=== PATIENT | male | born 1975 | race Two or more races ===

== ENCOUNTER 2017-06-27 19:34 | Emergency (ER) | payer SELFPAY ==
--- NOTE | 2017-06-27 20:17 | RADIOLOGY REPORT (SQ) ---
EXAM DESCRIPTION: FINGER LEFT COMPLETED DATE/TIME: 06/27/2017 8:06 pm REASON FOR STUDY: crush injury, hit with hammer COMPARISON: None. NUMBER OF VIEWS: Three views. TECHNIQUE: AP, lateral, and oblique images acquired of the left thumb. LIMITATIONS: None. FINDINGS: MINERALIZATION: Normal. BONES: No acute fracture or dislocation. No worrisome bone lesions. SOFT TISSUES: Distal soft tissue swelling. No foreign body. OTHER: No other significant finding. IMPRESSION: No fracture. COMMENT: SITE OF TRAUMA/COMPLAINT MARKED/STAMP COMPLETED: Yes TECHNICAL DOCUMENTATION: JOB ID: [id number] [employer]- All Rights Reserved
[2017-06-27] MEDS ORDERED: HYDROCODONE/ACETAMINOPHEN 5-325 MG 6 TAB/DSPK PO PRN (20:22)
[2017-06-27] MEDS ORDERED: CEPHALEXIN 500 MG CAPSULE PO ONE (20:22)
--- NOTE | 2017-06-27 20:30 | ER Document Report ---
HPI - HPI Patient complains to provider of: thumb injury Onset: This afternoon Onset/Duration: Sudden Quality of pain: Sharp Pain Level: 4 Context: Patient accidentally struck his left thumb with a hammer today. Patient is right-hand dominant. Patient states his tetanus immunization is currently up-to -date Associated Symptoms: Other - Left thumb injury Exacerbated by: Movement Relieved by: Denies Similar symptoms previously: No Recently seen / treated by doctor: No - ROS ROS below otherwise negative: Yes Systems Reviewed and Negative: Yes All other systems reviewed and negative - CONSTITUTIONAL Constitutional: DENIES: Fever - NEURO Neurology: DENIES: Weakness - MUSCULOSKELETAL Musculoskeletal: REPORTS: Extremity pain, Swelling - DERM Skin Color: Normal Skin Problems: Laceration Past Medical History - General Information source: Patient - Social History Smoking Status: Never Smoker Frequency of alcohol use: None Drug Abuse: None Occupation: Construction Family History: Reviewed & Not Pertinent Patient has suicidal ideation: No Patient has homicidal ideation: No - Medical History Medical History: Negative Renal/ Medical History: Denies: Hx Peritoneal Dialysis Past Surgical History: Reports: Hx Herniorrhaphy - Immunizations Hx Diphtheria, Pertussis, Tetanus Vaccination: Yes Vertical Provider Document - CONSTITUTIONAL Agree With Documented VS: Yes Exam Limitations: No Limitations General Appearance: WD/WN, No Apparent Distress - INFECTION CONTROL TRAVEL OUTSIDE OF THE [place] IN LAST 30 DAYS: No - HEENT HEENT: Atraumatic, Normocephalic - NECK Neck: Normal Inspection - RESPIRATORY Respiratory: Breath Sounds Normal, No Respiratory Distress O2 Sat by Pulse Oximetry: 100 - CARDIOVASCULAR Cardiovascular: Regular Rate, Regular Rhythm - MUSCULOSKELETAL/EXTREMETIES Musculoskeletal/Extremeties: MAEW, Tender - Left thumb, Edema, Eccymosis - NEURO Level of Consciousness: Awake, Alert, Appropriate Motor/Sensory: No Motor Deficit - DERM Integumentary: Warm, Dry Notes: Patient with a skin tear to skin just adjacent to nail plate, patient with subungual hematoma to left thumbnail. Left thumb tender, swollen, no deformity Course - Re-evaluation Re-evalutation: 06/27/17 20:23 Trephination performed to the left thumbnail, small amount of blood released - Vital Signs Vital signs: Temp Pulse Resp BP Pulse Ox 98.7 F 73 17 130/60 H 100 06/27/17 19:37 06/27/17 19:37 06/27/17 19:37 06/27/17 19:37 06/27/17 19:37 - Diagnostic Test Radiology reviewed: Image reviewed, Reports reviewed Procedures - Laceration/Wound Repair Left Thumb Wound length (cm): 1 Wound's Depth, Shape: Other - Skin tear Wound explored: Clean Wound Repaired With: Steri-strips Post-procedure wound care: Sterile dressing applied Post-procedure NV exam normal: Yes Complications: No Discharge - Discharge Clinical Impression: Crush injury, Skin tear Subungual hematoma of digit of hand Qualifiers: Encounter type: initial encounter Qualified Code(s): S60.10XA - Contusion of unspecified finger with damage to nail, initial encounter Condition: Stable Disposition: HOME, SELF-CARE Instructions: Cephalexin ([facility]), Crush Injury ([facility]), Oral Narcotic Medication ( [facility]), Care of Steri-Strip Closure ([facility]), Subungual Hematoma ([facility]) Additional Instructions: Return immediately for any new or worsening symptoms Followup with your primary care provider, call tomorrow to make a followup appointment Prescriptions: Cephalexin Monohydrate [Keflex 500 mg Capsule] 500 mg PO Q6H 5 Days capsule Hydrocodone/Acetaminophen [[place] 5-325 Tablet] 1 each PO Q4 PRN #10 tablet PRN Reason: Forms: Return to Work Referrals: LENA SWANSON DO [ACTIVE STAFF] - Follow up as needed
[2017-06-27 20:56] VITALS: BP 117/70
== END 2017-06-27 20:54 | disposition home or self-care (01) ==
LOC: ER 19:34
DX: S60.10XA Contusion of unspecified finger with damage to nail, initial encounter (principal); X58.XXXA Exposure to other specified factors, initial encounter
CPT/HCPCS: 99283

== ENCOUNTER 2018-04-11 19:32 | Emergency (ER) | payer SELFPAY ==
[2018-04-11] MEDS ORDERED: ASPIRIN 81 MG TABLET, CHEWABLE PO ONE (19:55)
--- NOTE | 2018-04-11 19:57 | ER Document Report ---
ED Medical Screen (RME) - General Chief Complaint: Chest Pain Stated Complaint: CHEST PAIN Time Seen by Provider: 04/11/18 19:51 Notes: RAPID MEDICAL EVALUATION DISCLOSURE I have seen this patient as part of a Rapid Medical Evaluation and, if applicable, placed any initially appropriate orders. The patient will be seen and fully evaluated, including a full history and physical exam, by a provider ( in Main ED or Fast Track) when a room becomes available. 43-year-old male here with complaints of midsternal chest pain radiating up to his neck ongoing for the past 4 days. The pain is worse with breathing but not worse with exertion. He has not tried taking anything for the symptoms. He no prior history of coronary disease but has a family history of [place] at age 40. He denies hypertension diabetes hyperlipidemia tobacco/cocaine abuse. He denies history of PE DVT or family history of same. Denies prolonged immobilization cancer or estrogen use. EXAM CTAB RRR TRAVEL OUTSIDE OF THE [place] IN LAST 30 DAYS: No - Related Data Allergies/Adverse Reactions: No Known Allergies Allergy (Verified 06/27/17 19:37) Past Medical History - Social History Frequency of alcohol use: Occasional Drug Abuse: None Renal/ Medical History: Denies: Hx Peritoneal Dialysis Past Surgical History: Reports: Hx Herniorrhaphy - Immunizations Hx Diphtheria, Pertussis, Tetanus Vaccination: Yes Physical Exam - Vital signs Vitals: Temp Pulse Resp BP Pulse Ox 98.8 F 81 16 128/76 H 97 04/11/18 19:49 04/11/18 19:49 04/11/18 19:49 04/11/18 19:49 04/11/18 19:49 Course - Vital Signs Vital signs: Temp Pulse Resp BP Pulse Ox 98.8 F 81 16 128/76 H 97 04/11/18 19:49 04/11/18 19:49 04/11/18 19:49 04/11/18 19:49 04/11/18 19:49
[2018-04-11 20:17] LABS: ABSOLUTE EOSINOPHILS # (AUTO) 0.1 10^3/uL (0.0-0.6); ABSOLUTE LYMPHOCYTES (AUTO) 2.4 10^3/uL (0.5-4.7); ABSOLUTE MONOCYTES (AUTO) 0.5 10^3/uL (0.1-1.4); ABSOLUTE NEUT (AUTO) 4.8 10^3/uL (1.7-8.2); BASOPHILS % (AUTO) 0.5 % (0-2); EOSINOPHILS % (AUTO) 0.9 % (0-6); HEMATOCRIT 43.4 % (37.9-51.0); HEMOGLOBIN 15.4 g/dL (13.5-17.0); LYMPHOCYTES % (AUTO) 30.2 % (13-45); MEAN CORPUSCULAR HEMOGLOBIN 30.1 pg (27.0-33.4); MEAN CORPUSCULAR HGB CONC 35.5 g/dL (32.0-36.0); MEAN CORPUSCULAR VOLUME 85 fl (80-97); PLATELET COUNT 210 10^3/uL (150-450); RED BLOOD COUNT 5.12 10^6/uL (4.35-5.55); RED CELL DISTRIBUTION WIDTH 13.2 % (11.5-14.0); SEGMENTED NEUTROPHILS % (AUTO) 61.4 % (42-78); TOTAL CELLS COUNTED % (AUTO) 100 %; WHITE BLOOD COUNT 7.9 10^3/uL (4.0-10.5)
[2018-04-11 20:35] LABS: ALANINE AMINOTRANSFERASE 88 U/L (21-72); ALBUMIN 4.7 g/dL (3.5-5.0); ALKALINE PHOSPHATASE 103 U/L (38-126); ANION GAP 13 (5-19); ASPARTATE AMINO TRANSFERASE 50 U/L (17-59); BILIRUBIN,DIRECT 0.3 mg/dL (0.0-0.4); BILIRUBIN,TOTAL 0.9 mg/dL (0.2-1.3); BLOOD UREA NITROGEN 21 mg/dL (7-20); CALCIUM 9.7 mg/dL (8.4-10.2); CARBON DIOXIDE 25 mmol/L (22-30); CHLORIDE 107 mmol/L (98-107); GLUCOSE 106 mg/dL (75-110); POTASSIUM 3.9 mmol/L (3.6-5.0); TOTAL PROTEIN 7.8 g/dL (6.3-8.2)
--- NOTE | 2018-04-11 21:09 | RADIOLOGY REPORT (SQ) ---
EXAM DESCRIPTION: CHEST 2 VIEWS COMPLETED DATE/TIME: 04/11/2018 8:29 pm REASON FOR STUDY: CP COMPARISON: None. EXAM PARAMETERS: NUMBER OF VIEWS: two views TECHNIQUE: Digital Frontal and Lateral radiographic views of the chest acquired. RADIATION DOSE: NA LIMITATIONS: none FINDINGS: LUNGS AND PLEURA: No opacities, masses or pneumothorax. No pleural effusion. MEDIASTINUM AND HILAR STRUCTURES: No masses or contour abnormalities. HEART AND VASCULAR STRUCTURES: Heart normal size. No evidence for failure. BONES: No acute findings. HARDWARE: None in the chest. OTHER: No other significant finding. IMPRESSION: NO ACUTE RADIOGRAPHIC FINDING IN THE CHEST. TECHNICAL DOCUMENTATION: JOB ID: [id number] [employer]- All Rights Reserved Reading location - IP/workstation name: [email or web address]
--- NOTE | 2018-04-11 21:13 | ER Document Report ---
ED Cardiac - General Chief Complaint: Chest Pain Stated Complaint: CHEST PAIN Time Seen by Provider: 04/11/18 19:51 Notes: Patient is a 43-year-old male who presents with 4 days of continuous midsternal chest pain. Says that he sometimes feels the pain going up to his neck. Pain is worse with breathing but not worse with exertion. There is a family history of an OK at age 40, but patient denies any personal history. He denies shortness of breath, nausea, vomiting, back pain, numbness, tingling, hematemesis, fevers or syncope. TRAVEL OUTSIDE OF THE [place] IN LAST 30 DAYS: No - Related Data Allergies/Adverse Reactions: No Known Allergies Allergy (Verified 06/27/17 19:37) Past Medical History - General Information source: Patient - Social History Smoking Status: Never Smoker Frequency of alcohol use: Occasional Drug Abuse: None Family History: Reviewed & Not Pertinent Patient has suicidal ideation: No Patient has homicidal ideation: No Renal/ Medical History: Denies: Hx Peritoneal Dialysis Past Surgical History: Reports: Hx Herniorrhaphy - Immunizations Hx Diphtheria, Pertussis, Tetanus Vaccination: Yes Review of Systems - Review of Systems Notes: REVIEW OF SYSTEMS: CONSTITUTIONAL: -fevers, -chills EENT: -eye pain, -difficulty swallowing, -nasal congestion CARDIOVASCULAR: +chest pain, -syncope. RESPIRATORY: -cough, -SOB GASTROINTESTINAL: -abdominal pain, -nausea, -vomiting, -diarrhea GENITOURINARY: -dysuria, -hematuria MUSCULOSKELETAL: -back pain, -neck pain SKIN: -rash or skin lesions. HEMATOLOGIC: -easy bruising or bleeding. LYMPHATIC: -swollen, enlarged glands. NEUROLOGICAL: -altered mental status or loss of consciousness, -headache, - neurologic symptoms PSYCHIATRIC: -anxiety, -depression. ALL OTHER SYSTEMS REVIEWED AND NEGATIVE. Physical Exam - Vital signs Vitals: Temp Pulse Resp BP Pulse Ox 98.8 F 81 16 128/76 H 97 04/11/18 19:49 04/11/18 19:49 04/11/18 19:49 04/11/18 19:49 04/11/18 19:49 - Notes Notes: PHYSICAL EXAMINATION: GENERAL: Well-appearing, well-nourished and in no acute distress. HEAD: Atraumatic, normocephalic. EYES: Pupils equal round and reactive to light, extraocular movements intact, sclera anicteric, conjunctiva are normal. ENT: nares patent, oropharynx clear without exudates. Moist mucous membranes. NECK: Normal range of motion, supple without lymphadenopathy LUNGS: Breath sounds clear to auscultation bilaterally and equal. No wheezes rales or rhonchi. HEART: Regular rate and rhythm without murmurs ABDOMEN: Soft, nontender, normoactive bowel sounds. No guarding, no rebound. No masses appreciated. EXTREMITIES: Normal range of motion, no pitting or edema. No cyanosis. NEUROLOGICAL: Cranial nerves grossly intact. Normal speech, normal gait. Normal sensory and motor exams. PSYCH: Normal mood, normal affect. SKIN: Warm, Dry, normal turgor, no rashes or lesions noted. Course - Re-evaluation Re-evalutation: Pt appears well. EKG does not show any ischemic changes and his troponin is negative. His HEART score is 1. D-dimer sent from triage is negative and pt is PERC negative. Symptoms are atypical for aortic dissection at this time. Patient safe for outpatient follow-up with his primary care physician for further evaluation and treatment of his chest pain. - Vital Signs Vital signs: Temp Pulse Resp BP Pulse Ox 98.3 F 81 15 105/77 96 04/11/18 21:42 04/11/18 19:49 04/11/18 21:01 04/11/18 21:00 04/11/18 21:01 - Laboratory Result Diagrams: 04/11/18 20:05 04/11/18 20:05 Laboratory results interpreted by me: 04/11/18 20:05 BUN 21 H ALT 88 H - Diagnostic Test Radiology reviewed: Image reviewed, Reports reviewed Radiology results interpreted by me: CXR: NAD - EKG Interpretation by Me EKG shows normal: Sinus rhythm, [place], Intervals, QRS Complexes, ST-T Waves Rate: Normal Discharge - Discharge Clinical Impression: Chest pain Qualifiers: Chest pain type: unspecified Qualified Code(s): R07.9 - Chest pain, unspecified Condition: Stable Disposition: HOME, SELF-CARE Additional Instructions: CHEST PAIN OF UNCLEAR CAUSE: The exact cause of your chest pain isn't clear. Fortunately, there is no evidence of a dangerous medical condition. Further testing may be required to find the source of the pain. Most often, we find that this pain is coming from the chest wall -- the muscles or rib joints in the chest. But chest pain can come from the lung and lung lining, the esophagus, the heart valves or heart lining, and even the stomach or gallbladder. Rest. Eat lightly until the pain is gone. We may prescribe medicine for pain and inflammation. You should call the physician immediately if the pain radiates to the shoulder, jaw or arms; if you start to run a fever or develop a cough; or if you develop shortness of breath, or other new or alarming symptoms. NORMAL EXAM AND WORKUP: At this time, your examination and workup show no significant abnormality. No significant abnormal physical findings were noted. All laboratory, EKG, and imaging (x-ray, CT scans, ultrasound) studies that were ordered show no significant abnormality. Although your examination and all studies that were ordered showed no significant abnormal finding, there are no examinations and no studies that are 100% accurate. There is always the possibility that some abnormality could exist and not be detected with physical examination or within the limits and capabilities of laboratory and other studies. You should return or follow up as you were instructed on your visit today for further evaluation if your symptoms do not resolve. CHEST WALL PAIN: Your chest pain may be coming from the chest wall. This is often caused by straining the muscles or joints in the chest during physical activity, direct trauma, coughing, or vigorous vomiting. Persons with arthritis are especially prone to this type of pain, due to inflammation of the cartilage joints near the breast bone. Occasionally, no cause can be found. Rest from strenuous physical activity. This kind of chest pain is usually made worse by movement of the chest. Depending on the symptoms, we may prescribe medicine for pain, muscle relaxation, and antiinflammatory effects. If the pain is new, and seems to be due to muscle strain, cold packs can help. Otherwise, apply gentle warmth to the painful area for 15 minutes every hour or two. You should call contact the doctor immediately if things change. Further evaluation is needed if you develop a fever or cough, if the nature of the pain changes, or if you become short of breath. ANGINA EPISODE: Your physician has diagnosed the pain you experienced as an episode of angina. Angina occurs when a portion of the heart muscle temporarily lacks oxygen. It does not cause any permanent heart damage, but serves as a warning. Hospitalization is not necessary now. Evaluation of your cardiac condition , and medical therapy for angina will be necessary. It's important you be sure to keep all appointments and take medication exactly as prescribed. Angina is usually treated with a type of "nitrate" medication. This is available as ointment, pills, or sublingual (under the tongue) tablets. Depending on your clinical situation, other medications may be added to help control angina. These may include beta blockers or calcium blockers. If episodes of angina are occurring with increased frequency, or if chest pain lasts longer than 15 minutes or does not respond to nitroglycerin, you must seek emergency medical care immediately. ACID REFLUX DISEASE (GERD): Gastro-Esophageal Reflux Disease (GERD) is caused by stomach acid refluxing back up into the esophagus. The valve at the end of the esophagus may be weak. This is common in persons with a hiatal hernia. GERD symptoms can include indigestion, chest pain, heartburn, or food "sticking." Certain foods, alcohol, and aspirin can make GERD worse. Treatment depends on the severity. Usually, antacids or acid-suppressing medicines are used. When the esophagus is acutely inflamed, the physician will often prescribe membrane-protective drugs such as Carafate. Some patients benefit from medication such as Reglan that tightens the valve at the top of the stomach. Avoid those foods that bring on your symptoms. For many people, these foods are coffee, chocolate, onions, garlic, and carbonated drinks. Don't use alcohol, aspirin, caffeine, or tobacco. Don't eat late at night -- within 4 hours of bedtime. Don't over-eat. If necessary, elevate the head of your bed about 4 inches so that stomach acid will not roll up into your esophagus. Call the doctor if you develop severe chest pain, inability to swallow fluids, fever, or worsening symptoms. FOLLOW-UP CARE: If you have been referred to a physician for follow-up care, call the physician s office for an appointment as you were instructed or within the next two days. If you experience worsening or a significant change in your symptoms, notify the physician immediately or return to the Emergency Department at any time for re-evaluation. Forms: Elevated Blood Pressure, Smoking Cessation Education Referrals: [facility] [Provider Group] - Follow up as needed
[2018-04-11 21:34] VITALS: BP 105/77
--- NOTE | 2018-04-11 23:35 | EKG REPORT ---
SEVERITY:- ABNORMAL ECG - SINUS RHYTHM PROBABLE INFERIOR INFARCT, OLD : Confirmed by: Rudy Johnston MD 11-Apr-2018 23:35:17
== END 2018-04-11 21:42 | disposition home or self-care (01) ==
LOC: ER 19:32
DX: R07.9 Chest pain, unspecified (principal); M54.2 Cervicalgia; R07.1 Chest pain on breathing
CPT/HCPCS: 36415; 71046; 80053; 84484; 85025; 85379; 93005; 93010; 99285

== ENCOUNTER 2018-04-24 08:52 | Inpatient (IN) | payer SELFPAY ==
--- NOTE | 2018-04-24 10:05 | ER Document Report ---
ED Cardiac - General Mode of Arrival: Ambulatory Information source: Patient TRAVEL OUTSIDE OF THE [place] IN LAST 30 DAYS: No <ELMA MONTANO - Last Filed: 04/24/18 10:05> <DANI MCDERMOTT - Last Filed: 04/27/18 15:20> - General Chief Complaint: Chest Wall Pain Stated Complaint: CHEST PAIN Time Seen by Provider: 04/24/18 09:52 Notes: Patient is a 43-year-old male who presents to the emergency department today with complaints of substernal chest pain that is exacerbated with deep breathing. Patient states he has noticed that his pain is worsened with exertion. Patient states the pain seems to radiate to the left side of his neck. Patient denies dizziness, lightheadedness, history of PE/DVT, or leg swelling. (ELMA MONTANO) - Related Data Allergies/Adverse Reactions: No Known Allergies Allergy (Verified 04/24/18 09:01) Past Medical History - General Information source: Patient - Social History Smoking Status: Never Smoker Cigarette use (# per day): No Chew tobacco use (# tins/day): No Frequency of alcohol use: Social Drug Abuse: None Lives with: Family Family History: Reviewed & Not Pertinent Patient has suicidal ideation: No Patient has homicidal ideation: No - Medical History Medical History: Negative Renal/ Medical History: Denies: Hx Peritoneal Dialysis Past Surgical History: Reports: Hx Herniorrhaphy - Immunizations Hx Diphtheria, Pertussis, Tetanus Vaccination: Yes <ELMA MONTANO - Last Filed: 04/24/18 10:05> Review of Systems - Review of Systems Constitutional: No symptoms reported EENT: No symptoms reported Cardiovascular: See HPI, Chest pain - radiating to left neck. denies: Dizziness , Lightheaded Respiratory: See HPI, Hurts to breathe Gastrointestinal: No symptoms reported Genitourinary: No symptoms reported Male Genitourinary: No symptoms reported Musculoskeletal: denies: Leg swelling Skin: No symptoms reported Hematologic/Lymphatic: No symptoms reported Neurological/Psychological: No symptoms reported -: Yes All other systems reviewed and negative <ELMA MONTANO - Last Filed: 04/24/18 10:05> Physical Exam <ELMA MONTANO - Last Filed: 04/24/18 10:05> <DANI MCDERMOTT - Last Filed: 04/27/18 15:20> - Vital signs Vitals: Temp Pulse Resp BP Pulse Ox 98.1 F 94 18 112/73 99 04/24/18 08:59 04/24/18 08:59 04/24/18 08:59 04/24/18 08:59 04/24/18 08:59 - Notes Notes: Physical Exam: General: Alert, appears well. HEENT: Normocephalic. Atraumatic. PERRL. Extraocular movements intact. Oropharynx clear. Neck: Supple. Non-tender. Respiratory: No respiratory distress. Complains of pain when taking deep breaths. Clear and equal breath sounds bilaterally. Cardiovascular: Regular rate and rhythm. Abdominal: Normal Inspection. Non-tender. No distension. Normal Bowel Sounds. Back: Non-tender. No deformity or step off. Extremities: Moves all four extremities. Upper extremities: Normal inspection. Normal ROM. Lower extremities: Normal inspection. No edema. Normal ROM. Neurological: Normal cognition. AAOx4. Normal speech. Psychological: Normal affect. Normal Mood. Skin: Warm. Dry. Normal color. (ELMA MONTANO) Course <ELMA MONTANO - Last Filed: 04/24/18 10:05> - Laboratory Result Diagrams: 04/27/18 07:05 04/25/18 06:57 <DANI MCDERMOTT - Last Filed: 04/27/18 15:20> - Re-evaluation Re-evalutation: 04/24/18 12:25 Patient found to have pericardial effusion on CTA. Consistent with findings on EKG with minor ST elevations with IA depressions. Discussed case with Dr. Batres , is requesting echocardiogram prior to admittance. Aspirin and colchicine provided at this time 04/24/18 14:47 Dr. Batres reviewed echocardiogram he felt it was safe to keep patient here and medically managed (DANI MCDERMOTT) - Vital Signs Vital signs: Temp Pulse Resp BP Pulse Ox 98.6 F 82 16 113/70 98 04/27/18 11:21 04/27/18 11:21 04/27/18 11:21 04/27/18 11:21 04/27/18 11:21 - Laboratory Laboratory results interpreted by me: 04/24/18 10:10 Total Bilirubin 1.8 H Direct Bilirubin 0.5 H Discharge <ELMA MONTANO - Last Filed: 04/24/18 10:05> - Discharge Admitting Provider: Ap Unit Admitted: Telemetry <DANI MCDERMOTT - Last Filed: 04/27/18 15:20> - Discharge Clinical Impression: Pericarditis Qualifiers: Pericarditis type: idiopathic Chronicity: acute Qualified Code(s): I30.0 - Acute nonspecific idiopathic pericarditis Disposition: ADMITTED INPATIENT Scribe Attestation: 04/27/18 15:20 I personally performed the services described documentation, reviewed and edited the documentation which was dictated to describe my presence, and it accurately records my words and actions. (DANI MCDERMOTT) Scribe Documentation - Scribe Written by Scribe:: Hallie Encarnacion, 04/24/2018 1011 acting as scribe for :: David <ELMA MONTANO - Last Filed: 04/24/18 10:05>
[2018-04-24 10:32] LABS: ABSOLUTE EOSINOPHILS # (AUTO) 0.1 10^3/uL (0.0-0.6); ABSOLUTE LYMPHOCYTES (AUTO) 1.4 10^3/uL (0.5-4.7); ABSOLUTE NEUT (AUTO) 6.1 10^3/uL (1.7-8.2); BASOPHILS % (AUTO) 0.2 % (0-2); EOSINOPHILS % (AUTO) 1.3 % (0-6); HEMATOCRIT 41.7 % (37.9-51.0); HEMOGLOBIN 14.7 g/dL (13.5-17.0); LYMPHOCYTES % (AUTO) 16.5 % (13-45); MEAN CORPUSCULAR HGB CONC 35.3 g/dL (32.0-36.0); MEAN CORPUSCULAR VOLUME 85 fl (80-97); MONOCYTES % (AUTO) 11.7 % (3-13); PLATELET COUNT 189 10^3/uL (150-450); RED CELL DISTRIBUTION WIDTH 13.1 % (11.5-14.0); SEGMENTED NEUTROPHILS % (AUTO) 70.3 % (42-78); TOTAL CELLS COUNTED % (AUTO) 100 %; WHITE BLOOD COUNT 8.7 10^3/uL (4.0-10.5)
[2018-04-24 10:45] LABS: ALANINE AMINOTRANSFERASE 57 U/L (21-72); ALBUMIN 4.5 g/dL (3.5-5.0); ALKALINE PHOSPHATASE 70 U/L (38-126); ANION GAP 11 (5-19); ASPARTATE AMINO TRANSFERASE 38 U/L (17-59); BILIRUBIN,DIRECT 0.5 mg/dL (0.0-0.4); BILIRUBIN,TOTAL 1.8 mg/dL (0.2-1.3); BLOOD UREA NITROGEN 15 mg/dL (7-20); CALCIUM 9.1 mg/dL (8.4-10.2); CARBON DIOXIDE 29 mmol/L (22-30); CHLORIDE 103 mmol/L (98-107); GLUCOSE 108 mg/dL (75-110); POTASSIUM 3.8 mmol/L (3.6-5.0); SODIUM 142.5 mmol/L (137-145); TOTAL PROTEIN 8.2 g/dL (6.3-8.2)
--- NOTE | 2018-04-24 10:47 | RADIOLOGY REPORT (SQ) ---
EXAM DESCRIPTION: CHEST SINGLE VIEW COMPLETED DATE/TIME: 04/24/2018 10:20 am REASON FOR STUDY: cpain COMPARISON: 04/11/2018 chest films EXAM PARAMETERS: NUMBER OF VIEWS: One view. TECHNIQUE: Single frontal radiographic view of the chest acquired. RADIATION DOSE: NA LIMITATIONS: None. FINDINGS: LUNGS AND PLEURA: No opacities, masses or pneumothorax. No pleural effusion. MEDIASTINUM AND HILAR STRUCTURES: No masses. Contour normal. HEART AND VASCULAR STRUCTURES: Heart normal in size. Normal vasculature. BONES: No acute findings. HARDWARE: None in the chest. OTHER: No other significant finding. IMPRESSION: NO ACUTE RADIOGRAPHIC FINDING IN THE CHEST. TECHNICAL DOCUMENTATION: JOB ID: [id number] [employer]- All Rights Reserved Reading location - IP/workstation name: [email or web address]
[2018-04-24 10:57] LABS: NT PRO BNP 59 pg/mL (<125)
[2018-04-24 11:00] LABS: TROPONIN I < 0.012 ng/mL
--- NOTE | 2018-04-24 11:17 | RADIOLOGY REPORT (SQ) ---
EXAM DESCRIPTION: CTA CHEST COMPLETED DATE/TIME: 04/24/2018 10:34 am REASON FOR STUDY: Chest pain with SOB with breathing COMPARISON: Chest x-ray dated 04/24/2018 TECHNIQUE: CT scan of the chest performed using helical scanning technique with dynamic intravenous contrast injection. Images reviewed with lung, soft tissue and bone windows. Reconstructed coronal and sagittal MPR images reviewed. Additional 3 dimensional post-processing performed to develop Maximal Intensity Projection images (IN P). All images stored on PACS. All CT scanners at this facility use dose modulation, iterative reconstruction, and/or weight based d osing when appropriate to reduce radiation dose to as low as reasonably achievable (ALARA). [facility]: Dose Right [facility]: CareDose [facility]: Dose Right [facility]: Teradose 4D [facility]: [employer] CONTRAST TYPE AND DOSE: contrast/concentration: Isovue 370.00 mg/ml; Total Contrast Delivered: 67.0 ml; Total Saline Delivered: 80.0 ml Contrast bolus optimized for the pulmonary arteries. Not diagnostic for the aorta RENAL FUNCTION: None required. The patient is less than 50 years old. RADIATION DOSE: CT Rad equipment meets quality standard of care and radiation dose reduction techniq ues were employed. CTDIvol: 15.3 - 16.5 mGy. DLP: 594 mGy-cm. . LIMITATIONS: None. FINDINGS: LUNGS AND PLEURA: No masses, infiltrates, or pneumothorax. No pleural effusions or pleura l calcifications. AORTA AND GREAT VESSELS: No aneurysm. Contrast bolus not optimized for the aorta. HEART: Large pericardial effusion is identified. No significant coronary artery calcifications. PULMONARY ARTERIES: No emboli visualized in the main pulmonary arteries or the segmental branches. HILAR AND MEDIASTINAL STRUCTURES: No identified masses or abnormal nodes. HARDWARE: None in the chest. UPPER ABDOMEN: There is diffuse fatty infiltration of the liver. THYROID AND OTHER SOFT TISSUES: No masses. No adenopathy. BONES: No acute or significant finding. 3D MIPS: Confirm above findings. OTHER: No other significant finding. IMPRESSION: No evidence for pulmonary embolic disease. No acute consolidations or pleural effusions . A large pericardial effusion is identified. Other findings as noted above COMMENT: Quality ID # [id number]: Final reports with documentation of one or more dose reduction techniques (e.g., Automated exposure control, adjustment of the mA and/or kV according to patient size, use of iterative reconstruction technique) TECHNICAL DOCUMENTATION: JOB ID: [id number] [email or web address] All Rights Reserved Reading location - IP/workstation name: [email or web address]
[2018-04-24] MEDS ORDERED: ASPIRIN 325 MG TABLET PO ONE (12:19)
[2018-04-24] MEDS ORDERED: COLCHICINE 0.6 MG TABLET PO ONE (12:20)
[2018-04-24] MEDS ORDERED: ASPIRIN 81 MG TABLET, CHEWABLE PO ONE (12:47)
--- NOTE | 2018-04-24 15:57 | XCELERA REPORT ---
[address] [address] Transthoracic Echocardiogram Report Name: SAKSHI ZAHEERSR Age: 43 yrs Gender: Male : 1975 Patient Status: Emergency Patient Location: ER Study Date: 04/24/2018 01:00 PM Procedure: A two-dimensional transthoracic echocardiogram with color flow and Doppler was performed. Study Quality: Fair. Reason For Study: pericardial effusion History: pericardial effusion. Ordering Physician: DANI MCDERMOTT Performed By: Amy Alatorre Interpretation Summary The left ventricle is normal in size. There is normal left ventricular wall thickness. LV EF is > than 65% Left ventricular systolic function is normal. Doppler measurements suggest normal left ventricular diastolic function The left ventricular wall motion is normal. The right ventricle is grossly normal size. The right ventricle is not well visualized secondary to technical limitations The right atrium is normal. The left atrial size is normal. There is no evidence of mitral valve prolapse. There is no vegetation seen on the mitral valve. There is no mitral valve stenosis. There is no mitral regurgitation noted. There is no aortic valve stenosis There is no LVOT obstruction. No aortic regurgitation is present. There is no tricuspid stenosis. No tricuspid regurgitation. Unable to estimate RVSP due to lack of TR jet. There is no pulmonic valvular stenosis. There is no pulmonic valvular regurgitation. Small to moderate pericardial effusion. There are no echocardiographic or Doppler indications for cardiac tamponade MMode/2D Measurements & Calculations RVDd: 3.1 cm LVIDd: 4.8 cm FS: 45.6 % Ao root diam: 2.9 cm IVSd: 0.74 cm LVIDs: 2.6 cm EDV(Teich): 107.4 mlAo root area: 6.6 cm2 LVPWd: 0.71 cmESV(Teich): 24.9 ml EF(Teich): 76.8 % LVOT diam: 2.1 cm LVOT area: 3.3 cm2 Doppler Measurements & Calculations MV E max luz: MV dec slope: Ao V2 max: LV V1 max P.7 cm/sec 141.7 cm/sec 5.1 mmHg MV A max luz: 314.8 cm/sec2 Ao max PG: LV V1 max: 65.5 cm/sec MV dec time: 8.0 mmHg 112.6 cm/sec MV E/A: 1.4 0.29 sec CLEOPATRA(V,D): 2.7 cm2 PA V2 max: 100.9 cm/sec PA max P.1 mmHg Left Ventricle The left ventricle is normal in size. There is normal left ventricular wall thickness. LV EF is > than 65%. Left ventricular systolic function is normal. Doppler measurements suggest normal left ventricular diastolic function. The left ventricular wall motion is normal. There is no thrombus. Right Ventricle The right ventricle is grossly normal size. The right ventricle is not well visualized secondary to technical limitations. Atria The right atrium is normal. The left atrial size is normal. Mitral Valve There is no evidence of mitral valve prolapse. There is no vegetation seen on the mitral valve. There is no mitral valve stenosis. There is no mitral regurgitation noted. Aortic Valve There is no aortic valvular vegetation. There is no aortic valve stenosis. There is no LVOT obstruction. No aortic regurgitation is present. Tricuspid Valve There is no tricuspid stenosis. No tricuspid regurgitation. Unable to estimate RVSP due to lack of TR jet. Pulmonic Valve There is no pulmonic valvular stenosis. There is no pulmonic valvular regurgitation. Great Vessels The aortic root is normal size. Effusions Small to moderate pericardial effusion. There are no echocardiographic or Doppler indications for cardiac tamponade. : DANI MCDERMOTT > Cassie Solis
[2018-04-24] MEDS ORDERED: ACETAMINOPHEN 325 MG TABLET PO PRN (16:26)
--- NOTE | 2018-04-24 16:55 | PDOC H&P ---
History of Present Illness Admission Date/PCP: 04/24/18 15:25 Patient complains of: CHEST PAIN History of Present Illness: ZAHEER CANTOR SR is a 43 year old male who presented to the ED with midsternal chest pain. The patient states he has been experiencing sharp midsternal chest pain radiating to the right anterior chest wall for 2-3 weeks. Of note, the patient was seen in the [facility] ED 04/14/2018 for chest pain and his workup was completely normal, he was discharged home. The patient states that his chest pain is intermittent in nature, exacerbated only with deep inhalation , cough, and movement. When he experiences the sharp pain, it will radiate up to his neck. The patient states he took Pepcid for his symptoms, but it offered no relief. He states that his symptoms are so severe that they keep him up at night. The patient also endorses a subjective fever over the course of the last week, stating there were multiple nights that he 'soaked through' this sheets with sweat. 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 Denies past medical history. No smoking, ETOH, or illicit drug use. Upon arrival to the emergency department, the patient's vital signs were T 98.1 BP 112/73 HR 94 RR 18 SPO2 99% on RA. EKG demonstrates diffuse ST elevation and TX depression, no T-wave inversion. CXR benign. CTA chest demonstrate moderate to large pericardial effusion. STAT echocardiogram demonstrates small to moderate pericardial effusion. Troponin <0.012. Pro-BNP 59. All other lab work completely benign. Received aspirin 600 mg p.o. in emergency department. Upon assessment, the patient is resting comfortably in bed on room air. He denies chest pain while at rest. Lung sounds are clear to auscultation. Very mild systolic murmur heard over Pulmonic area (2nd L intercostal space, L sternal border). No rubs or gallops. +2 palpable pulses in all extremities. No JVD. Patient denies pain is reproducible with palpation. Admit to hospitalist service for acute pericarditis. Cardiology has been consulted. Past Medical History Medical History: None Past Surgical History Past Surgical History: Reports: Herniorrhaphy Social History Information Source: Patient Lives with: Family Smoking Status: Never Smoker Frequency of Alcohol Use: Rare Hx Recreational Drug Use: No Drugs: None Hx Prescription Drug Abuse: No - Advance Directive Resuscitation Status: Full Code Family History Family History: DM Parental Family History Reviewed: Yes Children Family History Reviewed: Unknown Sibling(s) Family History Reviewed.: Yes Medication/Allergy Allergies/Adverse Reactions: No Known Allergies Allergy (Verified 04/24/18 09:01) Review of Systems All systems: reviewed and no additional remarkable complaints except as stated Constitutional: PRESENT: headache(s), night sweats. ABSENT: chills, fever(s), weight gain, weight loss Eyes: ABSENT: visual disturbances Ears: ABSENT: hearing changes Cardiovascular: PRESENT: chest pain, dyspnea on exertion. ABSENT: edema, orthropnea, palpitations Respiratory: ABSENT: cough, hemoptysis Gastrointestinal: PRESENT: nausea. ABSENT: abdominal pain, constipation, diarrhea, hematemesis, hematochezia, vomiting Genitourinary: ABSENT: dysuria, hematuria Musculoskeletal: ABSENT: joint swelling Integumentary: ABSENT: rash, wounds Neurological: ABSENT: abnormal gait, abnormal speech, confusion, dizziness, focal weakness, syncope Psychiatric: ABSENT: anxiety, depression, homidical ideation, suicidal ideation Endocrine: ABSENT: cold intolerance, heat intolerance, polydipsia, polyuria Hematologic/Lymphatic: ABSENT: easy bleeding, easy bruising Physical Exam Vital Signs: Temp Pulse Resp BP Pulse Ox 98.1 F 94 14 118/72 98 04/24/18 08:59 04/24/18 08:59 04/24/18 15:01 04/24/18 15:01 04/24/18 15:01 Results Impressions: Chest X-Ray 04/24/18 09:54 IMPRESSION: NO ACUTE RADIOGRAPHIC FINDING IN THE CHEST. Chest/Abdomen CTA 04/24/18 10:02 IMPRESSION: No evidence for pulmonary embolic disease. No acute consolidations or pleural effusions. A large pericardial effusion is identified. Other findings as noted above Status: Imported from PACS Assessment & Plan - Diagnosis (1) Pericarditis Qualifiers: Pericarditis type: unspecified type Chronicity: acute Qualified Code(s): I30.9 - Acute pericarditis, unspecified Is this a current diagnosis for this admission?: Yes Plan: Likely secondary viral infection or possible autoimmune disease Patient admits to recent ill contacts. EKG shows diffuse ST elevation, TX depression, no T-wave inversion. CTA chest demonstrates moderate to large pericardial effusion. Echocardiogram demonstrates small to moderate pericardial effusion. Cardiology consulted, appreciate recommendations. Aspirin 600 mg p.o. administered in emergency department. Initiated colchicine 0.6 mg p.o. every 12 hours in emergency department. Avoid SUBCUT heparin or Lovenox for DVT PPX to avoid hemorrhagic pericardial effusion. PPI twice daily for GI protection given NSAID therapy PAULETTE, Rh factor, double-stranded DNA with a.m. labs to rule out autoimmune disease. Monitor closely for symptoms of cardiac tamponade: Low arterial blood pressure, distended neck veins, distant/muffled heart sounds Low threshold for repeat echo if vital signs become unstable. - Time Time Spent: 50 to 70 Minutes Medications reviewed and adjusted accordingly: Yes Anticipated discharge: Home - Inpatient Certification Based on my medical assessment, after consideration of the patient's comorbidities, presenting symptoms, or acuity I expect that the services needed warrant INPATIENT care.: Yes I certify that my determination is in accordance with my understanding of Medicare's requirements for reasonable and necessary INPATIENT services [42 CFR 412.3e].: Yes Medical Necessity: Need For Continuous Telemetry Monitoring, Risk of Complication if Not Cared For in Hospital - Plan Summary Plan Summary: CARDIOLOGY CONSULTED. ADMIT TO IMCU. CONTINUE COLCHICINE. NO PHARM DVT PPX TO AVOID HEMORRHAGIC PERICARDIAL EFFUSION.
[2018-04-24] MEDS: LANSOPRAZOLE 30 MG TAB.RAP.DR PO SCH (21:13)
[2018-04-24] MEDS: COLCHICINE 0.6 MG TABLET PO SCH (23:51)
--- NOTE | 2018-04-25 00:23 | EKG REPORT ---
SEVERITY:- ABNORMAL ECG - SINUS RHYTHM SHORT PA INTERVAL, ACCELERATED AV CONDUCTION ST ELEVATION CONSISTENT WITH PERICARDITIS.PA DEPRESSION : Confirmed by: Cassie Solis MD 25-Apr-2018 00:23:10
--- NOTE | 2018-04-25 00:24 | EKG REPORT ---
SEVERITY:- ABNORMAL ECG - SINUS RHYTHM SHORT OK INTERVAL, ACCELERATED AV CONDUCTION CONSIDER INFERIOR INFARCT OK DEPRESSIOM.DIFFUSE ST ELEVATION C/W PERICARDITIS : Confirmed by: Cassie Solis MD 25-Apr-2018 00:24:00
[2018-04-25] MEDS: LANSOPRAZOLE 30 MG TAB.RAP.DR PO SCH ×2 (06:11→17:10)
[2018-04-25 07:26] LABS: ABSOLUTE EOSINOPHILS # (AUTO) 0.2 10^3/uL (0.0-0.6); ABSOLUTE LYMPHOCYTES (AUTO) 1.3 10^3/uL (0.5-4.7); ABSOLUTE MONOCYTES (AUTO) 0.9 10^3/uL (0.1-1.4); ABSOLUTE NEUT (AUTO) 7.2 10^3/uL (1.7-8.2); BASOPHILS % (AUTO) 0.2 % (0-2); HEMATOCRIT 40.3 % (37.9-51.0); HEMOGLOBIN 14.2 g/dL (13.5-17.0); MEAN CORPUSCULAR HEMOGLOBIN 30.1 pg (27.0-33.4); MEAN CORPUSCULAR HGB CONC 35.2 g/dL (32.0-36.0); MEAN CORPUSCULAR VOLUME 85 fl (80-97); MONOCYTES % (AUTO) 9.7 % (3-13); PLATELET COUNT 193 10^3/uL (150-450); RED BLOOD COUNT 4.72 10^6/uL (4.35-5.55); RED CELL DISTRIBUTION WIDTH 12.7 % (11.5-14.0); SEGMENTED NEUTROPHILS % (AUTO) 75.1 % (42-78); TOTAL CELLS COUNTED % (AUTO) 100 %; WHITE BLOOD COUNT 9.6 10^3/uL (4.0-10.5)
[2018-04-25 07:43] LABS: ALANINE AMINOTRANSFERASE 58 U/L (21-72); ALBUMIN 3.9 g/dL (3.5-5.0); ALKALINE PHOSPHATASE 65 U/L (38-126); ANION GAP 12 (5-19); ASPARTATE AMINO TRANSFERASE 29 U/L (17-59); BILIRUBIN,DIRECT 0.3 mg/dL (0.0-0.4); BILIRUBIN,TOTAL 1.6 mg/dL (0.2-1.3); BLOOD UREA NITROGEN 19 mg/dL (7-20); CALCIUM 9.1 mg/dL (8.4-10.2); CARBON DIOXIDE 28 mmol/L (22-30); CHLORIDE 103 mmol/L (98-107); GLUCOSE 130 mg/dL (75-110); POTASSIUM 4.1 mmol/L (3.6-5.0); SODIUM 142.5 mmol/L (137-145); TOTAL PROTEIN 6.9 g/dL (6.3-8.2)
[2018-04-25] MEDS ORDERED: ENOXAPARIN SODIUM INJ 30 MG/0.3 ML DISP.SYRIN SUBCUT SCH (10:00)
[2018-04-25] MEDS: COLCHICINE 0.6 MG TABLET PO SCH ×2 (10:06→21:25)
[2018-04-25] MEDS ORDERED: ONDANSETRON 4 MG TAB.RAPDIS PO PRN (13:10)
[2018-04-25] MEDS: MORPHINE SULFATE 10 MG/ML INJ IV PRN ×2 (13:11→17:11)
--- NOTE | 2018-04-25 18:08 | PDOC PROGRESS REPORT ---
Subjective Progress Note for:: 04/25/18 Subjective:: ZAHEER CANTOR SR is a 43 year old male who presented to the ED with midsternal chest pain. No PMH. Admitted for pericarditis. Patient was seen this morning on rounds, he is resting comfortably in the bedside recliner. He endorses midsternal chest pain with movement. He is asking for pain medication because the colchicine is not offering enough relief. Normal S1-S2. No murmurs, rubs or gallops. Palpable pulses in all extremities. No evidence of peripheral edema. NSR on telemetry. Lungs clear to auscultation. Reason For Visit: PERICARDITIS Physical Exam Vital Signs: Temp Pulse Resp BP Pulse Ox 99.9 F 99 16 103/72 97 04/25/18 15:52 04/25/18 15:52 04/25/18 15:52 04/25/18 15:52 04/25/18 15:52 Intake & Output 04/24/18 04/25/18 04/26/18 06:59 06:59 06:59 Intake Total 237 1025 Balance 237 1025 Weight 72.8 kg General appearance: PRESENT: no acute distress, well-developed, well-nourished Head exam: PRESENT: atraumatic, normocephalic Eye exam: PRESENT: conjunctiva pink, EOMI, PERRLA. ABSENT: scleral icterus Ear exam: PRESENT: normal external ear exam Mouth exam: PRESENT: moist, tongue midline Neck exam: PRESENT: full ROM. ABSENT: carotid bruit, JVD, lymphadenopathy, thyromegaly Respiratory exam: PRESENT: clear to auscultation parth. ABSENT: rales, rhonchi, wheezes Cardiovascular exam: PRESENT: RRR, +S1, +S2. ABSENT: diastolic murmur, rubs, systolic murmur Pulses: PRESENT: normal radial pulses, normal dorsalis pedis pul Vascular exam: PRESENT: normal capillary refill GI/Abdominal exam: PRESENT: normal bowel sounds, soft. ABSENT: distended, guarding, mass, organolmegaly, rebound, tenderness Rectal exam: PRESENT: deferred Extremities exam: PRESENT: full ROM. ABSENT: calf tenderness, clubbing, pedal edema Musculoskeletal exam: PRESENT: tenderness - Midsternal anterior chest wall Neurological exam: PRESENT: alert, awake, oriented to person, oriented to place , oriented to time, oriented to situation, CN II-XII grossly intact. ABSENT: motor sensory deficit Psychiatric exam: PRESENT: appropriate affect, normal mood. ABSENT: homicidal ideation, suicidal ideation Skin exam: PRESENT: dry, intact, warm. ABSENT: cyanosis, rash Results Laboratory Results: 04/25/18 06:57 04/25/18 06:57 04/24/18 04/25/18 04/25/18 20:31 06:57 06:57 WBC 9.6 RBC 4.72 Hgb 14.2 Hct 40.3 MCV 85 MCH 30.1 MCHC 35.2 RDW 12.7 Plt Count 193 Seg Neutrophils % 75.1 Lymphocytes % 13.0 Monocytes % 9.7 Eosinophils % 2.0 Basophils % 0.2 Absolute Neutrophils 7.2 Absolute Lymphocytes 1.3 Absolute Monocytes 0.9 Absolute Eosinophils 0.2 Absolute Basophils 0.0 Sodium 142.5 Potassium 4.1 Chloride 103 Carbon Dioxide 28 Anion Gap 12 BUN 19 Creatinine 0.67 Est GFR ( Amer) > 60 Est GFR (Non-Af Amer) > 60 Glucose 130 H Calcium 9.1 Total Bilirubin 1.6 H AST 29 ALT 58 Alkaline Phosphatase 65 C-Reactive Protein 69.4 H Total Protein 6.9 Albumin 3.9 04/25/18 06:57 NT-Pro-B Natriuret Pep 51 Impressions: Chest X-Ray 04/24/18 09:54 IMPRESSION: NO ACUTE RADIOGRAPHIC FINDING IN THE CHEST. Chest/Abdomen CTA 04/24/18 10:02 IMPRESSION: No evidence for pulmonary embolic disease. No acute consolidations or pleural effusions. A large pericardial effusion is identified. Other findings as noted above Assessment & Plan - Diagnosis (1) Pericarditis Qualifiers: Pericarditis type: unspecified type Chronicity: acute Qualified Code(s): I30.9 - Acute pericarditis, unspecified Is this a current diagnosis for this admission?: Yes Plan: Likely secondary viral infection or possible autoimmune disease Patient admits to recent ill contacts. EKG from admission shows diffuse ST elevation, UT depression, no T-wave inversion. CTA chest demonstrates moderate to large pericardial effusion. Echocardiogram demonstrates small to moderate pericardial effusion. Cardiology consulted, appreciate recommendations. Aspirin 600 mg p.o. x 1 administered in emergency department. Continue colchicine 0.6 mg p.o. every 12 hours Avoid SUBCUT heparin or Lovenox for DVT PPX to avoid hemorrhagic pericardial effusion. PPI twice daily for GI protection given NSAID therapy PAULETTE, Rh factor, double-stranded DNA with a.m. labs to rule out autoimmune disease. PRN morphine IV for pain control. Monitor closely for symptoms of cardiac tamponade: Low arterial blood pressure, distended neck veins, distant/muffled heart sounds Low threshold for repeat echo if vital signs become unstable. - Time Time Spent with patient: 15-24 minutes Medications reviewed and adjusted accordingly: Yes Anticipated discharge: Home - Inpatient Certification Based on my medical assessment, after consideration of the patient's comorbidities, presenting symptoms, or acuity I expect that the services needed warrant INPATIENT care.: Yes I certify that my determination is in accordance with my understanding of Medicare's requirements for reasonable and necessary INPATIENT services [42 CFR 412.3e].: Yes Medical Necessity: Risk of Complication if Not Cared For in Hospital
--- NOTE | 2018-04-25 19:58 | PDOC PROGRESS REPORT ---
Subjective Progress Note for:: 04/25/18 Subjective:: Patient complaining of chest pain which is clearly pleuritic. Patient denied any prior history of heart problems. 2D echocardiogram had shown evidence of moderate pericardial effusion. Clinically there is no evidence of tamponade. There was no tamponade on echocardiogram as well. Reason For Visit: PERICARDITIS Physical Exam Vital Signs: Temp Pulse Resp BP Pulse Ox 99.9 F 99 16 103/72 97 04/25/18 15:52 04/25/18 15:52 04/25/18 15:52 04/25/18 15:52 04/25/18 15:52 Intake & Output 04/24/18 04/25/18 04/26/18 06:59 06:59 06:59 Intake Total 237 1045 Balance 237 1045 Weight 72.8 kg Exam: GENERAL: well-nourished and in no acute distress. Alert and oriented x3 HEAD: Atraumatic, normocephalic. EYES: Pupils equal round and reactive to light, extraocular movements intact, sclera anicteric, conjunctiva are normal. ENT: TMs normal, nares patent, oropharynx clear without exudates. Moist mucous membranes. No oral ulcerations or bleeding gums noted NECK: supple without lymphadenopathy. Trachea is central. No cervical or axillary lymphadenopathy noted. Carotids are 2+, JVD WNL LUNGS: Respiration seems nonlabored, no significant accessory muscle action noted. Breath sounds clear to auscultation bilaterally and equal noted. No wheezes rales or rhonchi noted. No significant dullness noted on percussion. CHEST: Palpation of the chest wall shows no significant chest wall tenderness. 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 ABDOMEN: Soft, no significant tenderness appreciated, normoactive bowel sounds. No guarding, no rebound. No rigidity noted . No masses appreciated. EXTREMITIES: Pedal pulses are 1-2+, no calf tenderness noted. No clubbing or cyanosis. negative pedal edema noted NEUROLOGICAL: Focused neurological exam showed no significant neurologic deficit. Normal speech, no focal weakness appreciated. PSYCH: Normal mood, normal affect. Judgment and insight within normal limits. SKIN: No significant ecchymosis, skin is noted to be warm. MUSCULOSKELETAL EXAM: No significant acute joint swelling noted. Results Laboratory Results: 04/25/18 06:57 04/25/18 06:57 04/24/18 04/25/18 04/25/18 20:31 06:57 06:57 WBC 9.6 RBC 4.72 Hgb 14.2 Hct 40.3 MCV 85 MCH 30.1 MCHC 35.2 RDW 12.7 Plt Count 193 Seg Neutrophils % 75.1 Lymphocytes % 13.0 Monocytes % 9.7 Eosinophils % 2.0 Basophils % 0.2 Absolute Neutrophils 7.2 Absolute Lymphocytes 1.3 Absolute Monocytes 0.9 Absolute Eosinophils 0.2 Absolute Basophils 0.0 Sodium 142.5 Potassium 4.1 Chloride 103 Carbon Dioxide 28 Anion Gap 12 BUN 19 Creatinine 0.67 Est GFR ( Amer) > 60 Est GFR (Non-Af Amer) > 60 Glucose 130 H Calcium 9.1 Total Bilirubin 1.6 H AST 29 ALT 58 Alkaline Phosphatase 65 C-Reactive Protein 69.4 H Total Protein 6.9 Albumin 3.9 04/25/18 06:57 NT-Pro-B Natriuret Pep 51 EKG Comments: Telemetry strips reviewed shows sinus rhythm. 2D echocardiogram results reviewed with the patient. Impressions: Chest X-Ray 04/24/18 09:54 IMPRESSION: NO ACUTE RADIOGRAPHIC FINDING IN THE CHEST. Chest/Abdomen CTA 04/24/18 10:02 IMPRESSION: No evidence for pulmonary embolic disease. No acute consolidations or pleural effusions. A large pericardial effusion is identified. Other findings as noted above Assessment & Plan - Diagnosis (1) Pericarditis Qualifiers: Pericarditis type: idiopathic Chronicity: acute Qualified Code(s): I30.0 - Acute nonspecific idiopathic pericarditis Is this a current diagnosis for this admission?: Yes (2) Pericardial effusion Is this a current diagnosis for this admission?: Yes - Notes Notes: Patient in significant discomfort. Nurses tells me that morphine is not working for this patient. Patient is on colchicine therapy. I believe that to relieve patient's symptoms quickly, IV prednisone or Solu-Medrol is indicated and this was started. Patient should continue with proton pump inhibitor. Patient to report any worsening. - Time Time with patient: Greater than 35 minutes - CODE STATUS was discussed, patient remains full code. Surrogate decision-maker patient's mother. Multiple medical problems were addressed. More than 50% of the time spent coordinating care, discussing management plans with involved caregivers. Management plans discussed with involved personnels. Medical decision making was of moderate to high complexity, patient's has multiple comorbidities. Medications reviewed and adjusted accordingly: Yes
[2018-04-25] MEDS ORDERED: METHYLPREDNISOLONE INJ 40 MG/1 ML SDV IV SCH (20:00)
--- NOTE | 2018-04-26 00:15 | CONSULTATION REPORT E ---
Consultation Report NAME: ZAHEER CANTOR : 1975 AGE: 43Y DATE Of Consultation: 04/24/2018 ROOM: 302 A TO: NAHOMI VINSON M.D. FROM: Morales PRUITT, Requesting Physician REASON FOR CONSULTATION: Chest pain. HISTORY OF PRESENT ILLNESS: The patient is a 43-year-old male who presented to the emergency room with pain in the midsternum which is sharp in nature and increases with deep breathing or movement, and also radiates to the neck. He also states that the pain is more when he lies down. He also states that when he coughs the pain increases. The patient was seen in the emergency room on 04/14/2018 for chest pain and at that time his workup was said to be normal and he was sent home. The patient's chest pain persisted. He comes back in again and his EKG is consistent with acute pericarditis. The echocardiogram shows a small to moderate pericardial effusion without tamponade. He also has a history of subjective fever and some shortness of breath when he has the chest pain. There are no palpitations, syncope, or near syncope. He has no leg edema. PAST MEDICAL HISTORY: Is negative for any hypertension or diabetes mellitus. There is no history of COPD or asthma. There is no history of chronic kidney disease. SOCIAL HISTORY: The patient does not smoke. There is no EtOH abuse. There is no illicit drug abuse. ALLERGIES: The patient has no known allergies. SURGICAL HISTORY: He has a history of herniorrhaphy on the right side. FAMILY HISTORY: He states that his cousin has coronary artery disease. ADVANCE DIRECTIVES: The patient is a full code. He states his is his surrogate healthcare decision maker. MEDICATIONS: He was given aspirin 325 mg in the emergency room along with colchicine. His medications at present is; 1. Tylenol 975 mg p.o. q.6 hours p.r.n. 2. Colchicine 0.6 mg p.o. q.12 hours. 3. Prevacid 30 mg p.o. b.i.d. 4. Lansoprazole 30 mg p.o. at 6 a.m. and 1700. 5. He is on morphine 2 mg IV q.4 hours p.r.n. 6. Zofran 4 mg p.o. q.4 hours p.r.n. REVIEW OF SYSTEMS: CONSTITUTIONAL: The patient denies any rigors, but has a subjective feeling of fever. He is not able to quantify how much. There are no chills. He has generalized fatigue. HEAD: No history of headaches or head injury. EYES: No history of amblyopia or diplopia. No history of amaurosis fugax. EARS: No history of hearing loss. No history of tinnitus. No history of recurrent ear infections. NOSE: No history of hay fever. No history of nosebleeds. No history of nasal polyps. MOUTH: No history of altered taste sensation. No history of ulcers in the mouth. No bleeding from the gums. THROAT: No odynophagia or dysphagia. No history of recurrent sore throats. SKIN: No pruritus. No yellowish discoloration of the skin. No history of psoriasis. No history of skin cancer. NECK: No history of painful or painless swelling in the neck. No lymphadenopathy, no goiter. LUNGS: No history of asthma or COPD. Chest pain increased with breathing as mentioned earlier. No hemoptysis. No wheezing. No cough or sputum production. No symptoms of upper respiratory tract infection or lower respiratory tract infection. No history of sleep apnea. No history of pulmonary embolism. CARDIAC: No history of hypertension. No history of [place] or anginal symptoms. No prior history of pericarditis. No history of congestive heart failure. No history of cardiac arrhythmias. No history of PND, orthopnea, or leg edema. He has shortness of breath when he has the chest pain. The chest pain is sharp in nature and is in the front of the chest and radiates up into the neck. It also increases when the patient coughs or moves or takes a deep breath. It also hurts when he swallows. There are no palpitations or syncope. MUSCULOSKELETAL: There is no history of arthritis or collagen vascular. GASTROINTESTINAL: No history of hernia. No history of peptic ulcer disease. No history of GI bleed. No abdominal pain. No history of jaundice. No history of cirrhosis. No history of altered bowel movements. RENAL: No history of chronic kidney disease. No history of symptom of UTI. No history of hematuria, pyuria, or dysuria. No symptoms of enlarged prostate. ENDOCRINE: No history of diabetes mellitus. No history of thyroid disease. No history of polydipsia or polyuria. No history of heat or cold intolerance. CENTRAL NERVOUS SYSTEM: No history of TIA or CVA. No history of headaches, migraines, or seizures. No history gait imbalance. PSYCHIATRIC: No history of anxiety or depression. No history of suicidal ideation. No history of homicidal ideation. VASCULAR: No history of calf or buttock claudication. No history of DVT. HEMATOLOGICAL: No history of bleeding diathesis. No history of clotting disorders. PHYSICAL EXAMINATION: GENERAL: On examination the patient is well-built and well-dressed, in some distress due to some degree of chest pain. VITAL SIGNS: He is afebrile with a temperature of 98.1 degrees Fahrenheit, pulse is 94 beats per minute, blood pressure 112/73, respirations are 18 per minute, O2 saturations are 99% on room air. HEENT: Head is atraumatic, normocephalic. Eyes: Pupils are equal, round and regular, reactive to light and accommodation. Extraocular movements are normal. There is no conjunctival pallor. There is no scleral icterus. Ears: Tympanic membranes are intact, external auditory canals are clear. Nose: There is no deviated nasal septum. There is no inflammation of the nasal mucous membranes. Mouth: Mucous membranes of the mouth are moist, tongue is moist. There is no ulcer. There is no bleeding from the gum. Throat: There is no redness of the oropharynx. There are no exudates. SKIN: There are no skin rashes. There is no petechiae or ecchymosis. There are no skin lesions. NECK: Supple. There is no JVD. There is no lymphadenopathy. There is no goiter. Carotids are equal. There is no bruit. Trachea is central. LUNGS: Clear to auscultation and percussion. There is no chest wall tenderness. HEART: S1, S2 is heard. There is no S3 gallop. There is no S4 gallop. There is a systolic murmur in the left sternal border and the apex. There is no rub. On examination the patient does not have pulsus paradoxus. ABDOMEN: Soft, nontender. There is no hepatosplenomegaly. Bowel sounds are well heard. There are no tender areas or masses. EXTREMITIES: Femorals are well felt. Leg pulses are well felt. There is no pedal edema. There is no cyanosis or clubbing. There is no DVT or cellulitis. There is no calf tenderness. CENTRAL NERVOUS SYSTEM: The patient is conscious, awake, alert and oriented x3 with no focal deficits. PSYCHIATRIC: The patient's judgment and insight are intact. His affect is normal. DIAGNOSTICS: The patient's EKG is consistent with pericarditis with diffuse ST segment elevation and TX segment depression. His echocardiogram shows a small to moderate pericardial effusion without evidence of tamponade. The left ventricle is normal size. There is normal left ventricular wall thickness. LV ejection fraction is greater than 65%. The diastolic function is normal. The right atrium is normal. The left atrial size is normal. There is no evidence of mitral valve prolapse. There is no vegetation seen. There is no mitral valve stenosis. There is no mitral regurgitation. There is no aortic stenosis or aortic regurgitation. There is no tricuspid regurgitation. There is no tricuspid stenosis. Unable to calculate the right ventricular systolic pressure due to lack of TR jet. The patient's white count is 8700, hemoglobin is 14.7, hematocrit is 41.7, platelet count is 189,000. The patient's sed rate is elevated at 63. The patient's c-reactive protein is 69.4. The patient's sodium is 122.5, potassium is 3.8. The patient's chloride is 103, CO2 is 29. The patient's BUN is 15, creatinine 0.72, and GFR is greater than 60. His calcium is 9.1. His glucose is 108. His total bilirubin is 1.8. His direct bilirubin is 0.5. The rest of the liver function tests are normal. His CPK-MB is less than 0.012. His NT-proBNP is 59. The patient's total protein is 8.2, albumin is 4.5. IMPRESSION: 1. Pericarditis. 2. Pericardial effusion. RECOMMENDATIONS: Continue the patient on colchicine. Would recommend check the patient for collagen vascular disease as well as checking the patient for any evidence of viral infection. Discussed the case with the attending physician on the case and also discussed the echo findings with the patient. TIME SPENT: Note the patient was seen at 9 a.m., although dictated later on. Fifty-five minutes spent on this patient with more than 50% of the time spent on direct patient care. Medical decision making is of high complexity in view of the pericardial effusion and the need to make sure that the patient does not have tamponade. Note by echo and clinically the patient does not have tamponade. Dr. Kuo will follow the patient in the morning. DICTATING PHYSICIAN: NAHOMI VINSON M.D. [id number] PHY#: [id number] ID: [id number] JOB#: [id number] ACCT: [id number] cc:NAHOMI VINSON M.D. > MTDD
[2018-04-26] MEDS: MORPHINE SULFATE 10 MG/ML INJ IV PRN ×2 (01:39→10:12)
[2018-04-26] MEDS: LANSOPRAZOLE 30 MG TAB.RAP.DR PO SCH ×2 (06:37→17:38)
[2018-04-26] MEDS: COLCHICINE 0.6 MG TABLET PO SCH ×2 (09:39→22:41)
[2018-04-26 10:03] LABS: HEMATOCRIT 40.5 % (37.9-51.0); HEMOGLOBIN 14.3 g/dL (13.5-17.0); MEAN CORPUSCULAR HEMOGLOBIN 29.5 pg (27.0-33.4); MEAN CORPUSCULAR HGB CONC 35.3 g/dL (32.0-36.0); MEAN CORPUSCULAR VOLUME 84 fl (80-97); PLATELET COUNT 225 10^3/uL (150-450); RED BLOOD COUNT 4.84 10^6/uL (4.35-5.55); RED CELL DISTRIBUTION WIDTH 12.6 % (11.5-14.0); WHITE BLOOD COUNT 11.1 10^3/uL (4.0-10.5)
--- NOTE | 2018-04-26 10:57 | PDOC PROGRESS REPORT ---
Subjective Progress Note for:: 04/26/18 Subjective:: Patient tells me that his pleuritic chest pain has improved. Patient denied any prior history of heart problems. 2D echocardiogram had shown evidence of mild to moderate pericardial effusion. Clinically there is no evidence of tamponade. There was no tamponade on echocardiogram as well. Patient denied any other significant complaints. Reason For Visit: PERICARDITIS Physical Exam Vital Signs: Temp Pulse Resp BP Pulse Ox 98.8 F 90 16 122/73 99 04/26/18 08:21 04/26/18 08:21 04/26/18 08:21 04/26/18 08:21 04/26/18 08:21 Intake & Output 04/25/18 04/26/18 04/27/18 06:59 06:59 06:59 Intake Total 237 1049 Balance 237 1049 Weight 72.8 kg 72.5 kg Exam: GENERAL: well-nourished and in no acute distress. Alert and oriented x3 HEAD: Atraumatic, normocephalic. EYES: Pupils equal round and reactive to light, extraocular movements intact, sclera anicteric, conjunctiva are normal. ENT: TMs normal, nares patent, oropharynx clear without exudates. Moist mucous membranes. No oral ulcerations or bleeding gums noted NECK: supple without lymphadenopathy. Trachea is central. No cervical or axillary lymphadenopathy noted. Carotids are 2+, JVD WNL LUNGS: Respiration seems nonlabored, no significant accessory muscle action noted. Breath sounds clear to auscultation bilaterally and equal noted. No wheezes rales or rhonchi noted. No significant dullness noted on percussion. CHEST: Palpation of the chest wall shows no significant chest wall tenderness. HEART: [place] [employer], No PSH, 1/6 KO aortic area, 1/6 spence systolic murmur mitral area, no rubs, no gallops. ABDOMEN: Soft, no significant tenderness appreciated, normoactive bowel sounds. No guarding, no rebound. No rigidity noted . No masses appreciated. EXTREMITIES: Pedal pulses are 1-2+, no calf tenderness noted. No clubbing or cyanosis. negative pedal edema noted NEUROLOGICAL: Focused neurological exam showed no significant neurologic deficit. Normal speech, no focal weakness appreciated. PSYCH: Normal mood, normal affect. Judgment and insight within normal limits. SKIN: No significant ecchymosis, skin is noted to be warm. MUSCULOSKELETAL EXAM: No significant acute joint swelling noted. Results Laboratory Results: 04/26/18 09:39 04/25/18 06:57 04/26/18 04/26/18 09:39 09:39 WBC 11.1 H RBC 4.84 Hgb 14.3 Hct 40.5 MCV 84 MCH 29.5 MCHC 35.3 RDW 12.6 Plt Count 225 C-Reactive Protein 81.9 H 04/25/18 06:57 NT-Pro-B Natriuret Pep 51 EKG Comments: Telemetry shows sinus rhythm without any sustained tachycardia or bradycardia Impressions: Chest X-Ray 04/24/18 09:54 IMPRESSION: NO ACUTE RADIOGRAPHIC FINDING IN THE CHEST. Chest/Abdomen CTA 04/24/18 10:02 IMPRESSION: No evidence for pulmonary embolic disease. No acute consolidations or pleural effusions. A large pericardial effusion is identified. Other findings as noted above Assessment & Plan - Diagnosis (1) Pericarditis Qualifiers: Pericarditis type: idiopathic Chronicity: acute Qualified Code(s): I30.0 - Acute nonspecific idiopathic pericarditis Is this a current diagnosis for this admission?: Yes (2) Pericardial effusion Is this a current diagnosis for this admission?: Yes - Notes Notes: Pericarditis: Possibly idiopathic. Rx with nonsteroidal. May consider continuing his steroids for short-term. Pericardial effusion: Clinically no evidence of tamponade. Continue current management plans. - Time Time with patient: 15-25 minutes - More than 50% of the time spent coordinating care, discussing management plans with involved caregivers. Management plans discussed with involved personnels. Medical decision making was of moderate complexity. Medications reviewed and adjusted accordingly: Yes
[2018-04-26] MEDS: IBUPROFEN 800 MG TABLET PO SCH ×2 (13:35→22:42)
[2018-04-26] MEDS ORDERED: METHYLPREDNISOLONE INJ 40 MG/1 ML SDV IV SCH (14:00)
[2018-04-26 14:38] LABS: ANTICHROMATIN AB <0.2 AI (0.0-0.9); CENTROMERE B AB <0.2 AI (0.0-0.9); JO-1 ANTIBODY (ANACOMP) <0.2 AI (0.0-0.9); RNP AB 0.3 AI (0.0-0.9); SCLERODERMA-70 ANTIBODIES <0.2 AI (0.0-0.9); SJOGREN'S ANTI-SS-B AB <0.2 AI (0.0-0.9); SJOGREN'S SS-A ANTIBODY 0.2 AI (0.0-0.9); SMITH AB ANA <0.2 AI (0.0-0.9)
--- NOTE | 2018-04-26 16:46 | PDOC PROGRESS REPORT ---
Subjective Progress Note for:: 04/26/18 Subjective:: ZAHEER CANTOR SR is a 43 year old male who presented to the ED with midsternal chest pain. No PMH. Admitted for pericarditis. Patient was seen this morning on rounds, he is resting comfortably in bed. He still endorses midsternal chest pain but states it has improved slightly. Normal S1-S2. No murmurs, rubs or gallops. Palpable pulses in all extremities. No evidence of peripheral edema. NSR on telemetry. Lungs clear to auscultation. Reason For Visit: PERICARDITIS Physical Exam Vital Signs: Temp Pulse Resp BP Pulse Ox 99.0 F 95 16 125/77 98 04/26/18 15:13 04/26/18 15:13 04/26/18 15:13 04/26/18 15:13 04/26/18 15:13 Intake & Output 04/25/18 04/26/18 04/27/18 06:59 06:59 06:59 Intake Total 237 1049 678 Balance 237 1049 678 Weight 72.8 kg 72.5 kg General appearance: PRESENT: no acute distress, well-developed, well-nourished Head exam: PRESENT: atraumatic, normocephalic Eye exam: PRESENT: conjunctiva pink, EOMI, PERRLA. ABSENT: scleral icterus Ear exam: PRESENT: normal external ear exam Mouth exam: PRESENT: moist, tongue midline Neck exam: PRESENT: full ROM. ABSENT: carotid bruit, JVD, lymphadenopathy, thyromegaly Respiratory exam: PRESENT: clear to auscultation parth, symmetrical, unlabored. ABSENT: rales, rhonchi, wheezes Cardiovascular exam: PRESENT: RRR, +S1, +S2. ABSENT: diastolic murmur, rubs, systolic murmur Pulses: PRESENT: normal radial pulses, normal dorsalis pedis pul Vascular exam: PRESENT: normal capillary refill GI/Abdominal exam: PRESENT: normal bowel sounds, soft. ABSENT: distended, guarding, mass, organolmegaly, rebound, tenderness Rectal exam: PRESENT: deferred Extremities exam: PRESENT: full ROM. ABSENT: calf tenderness, clubbing, pedal edema Musculoskeletal exam: PRESENT: ambulatory, full ROM Neurological exam: PRESENT: alert, awake, oriented to person, oriented to place , oriented to time, oriented to situation Psychiatric exam: PRESENT: appropriate affect, normal mood Skin exam: PRESENT: dry, intact, warm. ABSENT: cyanosis, rash Results Laboratory Results: 04/26/18 09:39 04/25/18 06:57 04/26/18 04/26/18 09:39 09:39 WBC 11.1 H RBC 4.84 Hgb 14.3 Hct 40.5 MCV 84 MCH 29.5 MCHC 35.3 RDW 12.6 Plt Count 225 C-Reactive Protein 81.9 H 04/25/18 06:57 NT-Pro-B Natriuret Pep 51 Impressions: Chest X-Ray 04/24/18 09:54 IMPRESSION: NO ACUTE RADIOGRAPHIC FINDING IN THE CHEST. Chest/Abdomen CTA 04/24/18 10:02 IMPRESSION: No evidence for pulmonary embolic disease. No acute consolidations or pleural effusions. A large pericardial effusion is identified. Other findings as noted above Status: Imported from PACS Assessment & Plan - Diagnosis (1) Pericarditis Qualifiers: Pericarditis type: unspecified type Chronicity: acute Qualified Code(s): I30.9 - Acute pericarditis, unspecified Is this a current diagnosis for this admission?: Yes Plan: Likely secondary viral infection or possible autoimmune disease Patient admits to recent ill contacts. EKG from admission shows diffuse ST elevation, NM depression, no T-wave inversion. CTA chest demonstrates moderate to large pericardial effusion. Echocardiogram demonstrates small to moderate pericardial effusion. Aspirin 600 mg p.o. x 1 administered in emergency department. Colchicine 0.6 mg p.o. every 12 hours Ibuprofen 800mg PO every 8 hours Avoid SUBCUT heparin or Lovenox for DVT PPX to avoid hemorrhagic pericardial effusion. PPI twice daily for GI protection given NSAID therapy PAULETTE, double-stranded DNA to rule out autoimmune disease, results still pending RH Factor negative. PRN morphine IV for pain control. According to the [place] [employer] (Circulation. 2013; 127:0770-2232) and the Society of Cardiology (Eur Heart J. 2015;36(42):2921) the recommended treatment for pericarditis is NSAIDs for 1-2 weeks and colchicine for 3 months. Glucocorticoids should be used in the initial treatment of pericarditis in patient's with contraindications to NSAIDs. This patient is young and has no PMH, therefore no contraindications to NSAID therapy. SoluMedrol treatment has been discontinued. Monitor closely for symptoms of cardiac tamponade: Low arterial blood pressure, distended neck veins, distant/muffled heart sounds Low threshold for repeat echo if vital signs become unstable. - Time Time Spent with patient: 15-24 minutes Medications reviewed and adjusted accordingly: Yes Anticipated discharge: Home - Inpatient Certification Based on my medical assessment, after consideration of the patient's comorbidities, presenting symptoms, or acuity I expect that the services needed warrant INPATIENT care.: Yes I certify that my determination is in accordance with my understanding of Medicare's requirements for reasonable and necessary INPATIENT services [42 CFR 412.3e].: Yes Medical Necessity: Risk of Complication if Not Cared For in Hospital - Plan Summary Plan Summary: CONTINUE NSAIDS AND COLCHICINE PER CURRENT GUIDELINES. CONTINUE TO MONITOR CRP.
[2018-04-27] MEDS: IBUPROFEN 800 MG TABLET PO SCH ×3 (06:10→21:42)
[2018-04-27] MEDS: LANSOPRAZOLE 30 MG TAB.RAP.DR PO SCH ×2 (06:11→17:12)
[2018-04-27 07:24] LABS: DNA DOUBLE STRAND ANTIBODY ANA 2 IU/mL (0-9)
[2018-04-27 07:37] LABS: HEMATOCRIT 37.8 % (37.9-51.0); HEMOGLOBIN 13.5 g/dL (13.5-17.0); MEAN CORPUSCULAR HEMOGLOBIN 30.2 pg (27.0-33.4); MEAN CORPUSCULAR HGB CONC 35.8 g/dL (32.0-36.0); MEAN CORPUSCULAR VOLUME 84 fl (80-97); PLATELET COUNT 197 10^3/uL (150-450); RED BLOOD COUNT 4.48 10^6/uL (4.35-5.55); RED CELL DISTRIBUTION WIDTH 12.7 % (11.5-14.0); WHITE BLOOD COUNT 9.1 10^3/uL (4.0-10.5)
[2018-04-27] MEDS: COLCHICINE 0.6 MG TABLET PO SCH ×2 (09:02→21:42)
--- NOTE | 2018-04-27 14:50 | PDOC PROGRESS REPORT ---
Subjective Progress Note for:: 04/27/18 Subjective:: ZAHEER CANTOR SR is a 43 year old male who presented to the ED with midsternal chest pain. No PMH. Admitted for pericarditis. Patient was seen this morning on rounds, he is resting comfortably in bed. He still endorses midsternal chest pain but states it has improved. Rates his pain 1 out of 5. Normal S1-S2. No murmurs, rubs or gallops. Palpable pulses in all extremities. No evidence of peripheral edema. NSR on telemetry. Lungs clear to auscultation. Plan for repeat ECHOcardiogram today Reason For Visit: PERICARDITIS Physical Exam Vital Signs: Temp Pulse Resp BP Pulse Ox 98.6 F 82 16 113/70 98 04/27/18 11:21 04/27/18 11:21 04/27/18 11:21 04/27/18 11:21 04/27/18 11:21 Intake & Output 04/26/18 04/27/18 04/28/18 06:59 06:59 06:59 Intake Total 1049 1213 675 Output Total 180 200 Balance 1049 1033 475 Weight 72.5 kg 72.5 kg General appearance: PRESENT: no acute distress, well-developed, well-nourished Head exam: PRESENT: atraumatic, normocephalic Eye exam: PRESENT: conjunctiva pink, EOMI, PERRLA. ABSENT: scleral icterus Ear exam: PRESENT: normal external ear exam Mouth exam: PRESENT: moist, tongue midline Neck exam: ABSENT: carotid bruit, JVD, lymphadenopathy, thyromegaly Respiratory exam: PRESENT: clear to auscultation parth. ABSENT: rales, rhonchi, wheezes Cardiovascular exam: PRESENT: RRR, +S1, +S2. ABSENT: diastolic murmur, rubs, systolic murmur Pulses: PRESENT: normal radial pulses, normal dorsalis pedis pul Vascular exam: PRESENT: normal capillary refill GI/Abdominal exam: PRESENT: normal bowel sounds, soft. ABSENT: distended, guarding, mass, organolmegaly, rebound, tenderness Rectal exam: PRESENT: deferred Extremities exam: PRESENT: full ROM. ABSENT: calf tenderness, clubbing, pedal edema Musculoskeletal exam: PRESENT: ambulatory, full ROM Neurological exam: PRESENT: alert, awake, oriented to person, oriented to place , oriented to time, oriented to situation Psychiatric exam: PRESENT: appropriate affect, normal mood Skin exam: PRESENT: dry, intact, warm. ABSENT: cyanosis, rash Results Laboratory Results: 04/27/18 07:05 04/25/18 06:57 04/27/18 04/27/18 07:05 07:05 WBC 9.1 RBC 4.48 Hgb 13.5 Hct 37.8 L MCV 84 MCH 30.2 MCHC 35.8 RDW 12.7 Plt Count 197 C-Reactive Protein 60.7 H 04/25/18 06:57 NT-Pro-B Natriuret Pep 51 Impressions: Chest X-Ray 04/24/18 09:54 IMPRESSION: NO ACUTE RADIOGRAPHIC FINDING IN THE CHEST. Chest/Abdomen CTA 04/24/18 10:02 IMPRESSION: No evidence for pulmonary embolic disease. No acute consolidations or pleural effusions. A large pericardial effusion is identified. Other findings as noted above Status: Imported from PACS Assessment & Plan - Diagnosis (1) Pericarditis Qualifiers: Pericarditis type: unspecified type Chronicity: acute Qualified Code(s): I30.9 - Acute pericarditis, unspecified Is this a current diagnosis for this admission?: Yes Plan: Likely secondary viral infection or possible autoimmune disease Patient admits to recent ill contacts. EKG from admission shows diffuse ST elevation, [place] depression, no T-wave inversion. 04/24 CTA chest demonstrates moderate to large pericardial effusion. 04/24 Echocardiogram demonstrates small to moderate pericardial effusion. Repeat ECHOcardiogram done today, results pending CRP improved from yesterday 80->67. Continue to trend daily. Aspirin 600 mg p.o. x 1 administered in emergency department. Colchicine 0.6 mg p.o. every 12 hours Ibuprofen 800mg PO every 8 hours Avoid SUBCUT heparin or Lovenox for DVT PPX to avoid hemorrhagic pericardial effusion. PPI twice daily for GI protection given NSAID therapy RH Factor, PAULETTE, double-stranded DNA to rule out autoimmune disease - all negative PRN morphine IV for pain control. According to the [place] [employer] (Circulation. 2013; 127:9283-3825) and the Society of Cardiology (Eur Heart J. 2015;36(42):2921) the recommended treatment for pericarditis is NSAIDs for 1-2 weeks and colchicine for 3 months. Glucocorticoids should be used in the initial treatment of pericarditis in patient's with contraindications to NSAIDs. This patient is young and has no PMH, therefore no contraindications to NSAID therapy. Monitor closely for symptoms of cardiac tamponade: Low arterial blood pressure, distended neck veins, distant/muffled heart sounds Low threshold for repeat echo if vital signs become unstable. - Time Time Spent with patient: 15-24 minutes Medications reviewed and adjusted accordingly: Yes - Inpatient Certification Based on my medical assessment, after consideration of the patient's comorbidities, presenting symptoms, or acuity I expect that the services needed warrant INPATIENT care.: Yes I certify that my determination is in accordance with my understanding of Medicare's requirements for reasonable and necessary INPATIENT services [42 CFR 412.3e].: Yes Medical Necessity: Risk of Complication if Not Cared For in Hospital - Plan Summary Plan Summary: REPEAT ECHOCARDIOGRAM TODAY. RESULTS PENDING. IF IMPROVED, WILL LIKELY D/C HOME WITHIN 24-48 HOURS.
--- NOTE | 2018-04-27 15:05 | Progress Note ---
Provider Note Provider Note: PROGRESS NOTE for 04/27/18. Patient states he feels much better and his pain is very much improved and only minimal. He denies shortness of breath. There is no PND orthopnea. There is no arrhythmia seen on the monitor.. There is no PND ,orthopnea or leg edema. The patient is sitting up in a chair with no distress. Selected Entries 04/24/18 04/27/18 08:59 07:43 Temperature 98.1 F 98.6 F Pulse Rate 94 80 Respiratory 18 16 Rate Blood Pressure 112/73 109/59 L Blood Pressure 75 Mean O2 Sat by Pulse 99 99 Oximetry Oxygen Delivery Room Air Room Air Method 04/24/18 04/25/18 04/25/18 20:31 06:57 06:57 Rheumatoid Factor NEGATIVE PAULETTE (Multiplex) Negative DENNIS-1 Antibody <0.2 SS-A/Ro Antibody 0.2 SS-B/La Antibody <0.2 RESOURCE MANAGER Antibody 0.3 Scl-70 Scleroderma Ab <0.2 Chromatin Antibody <0.2 Anti-Centromere Interp <0.2 Tot Complement (CH50) 04/25/18 06:57 Rheumatoid Factor PAULETTE (Multiplex) DENNIS-1 Antibody SS-A/Ro Antibody SS-B/La Antibody RESOURCE MANAGER Antibody Scl-70 Scleroderma Ab Chromatin Antibody Anti-Centromere Interp Tot Complement (CH50) Pending VITAL SIGNS: As recorded above. There is no pulsus paradoxus. IMPRESSION: 1. Pericarditis. Mostly idiopathic. So far his collagen vascular workup has been negative. 2. Pericardial effusion. REPEAT ECHO: Shows slight increase of the pericardial effusion which is now moderate. There are no signs of echo or Doppler evidence of tamponade. EKG: Shows that there is T flattening in most of the leads, with beginning of a negative T wave in some, and the ST elevation has now come back to baseline. This shows that this is the second phase of pericarditis. RECOMMENDATIONS: Continue the patient on colchicine, and analgesic agents. Work up the patient for So far is negative for collagen vascular disease . Would recommend checking the patient for any evidence of viral infection. Discussed the case with the attending physician on the case and also discussed the echo findings with the patient. TIME SPENT: Note 40 minutes spent on this patient with more than 50% of the time spent on direct patient care. Medical decision making is of moderate to high complexity in view of the pericardial effusion and the need to make sure that the patient does not have tamponade. Note by echo and clinically the patient does not have tamponade. ECHO findings were discussed with the patient. Would recommend avoid steroids. We will ambulate the patient and if stable hopefully will be discharged tomorrow morning. Discussed with other caregiving providers and the attending physician on the case. His medications have been reviewed. WOULD recommend return to work after the effusion significantly decreases.
--- NOTE | 2018-04-27 19:09 | EKG REPORT ---
SEVERITY:- ABNORMAL ECG - SINUS RHYTHM SHORT LA INTERVAL, ACCELERATED AV CONDUCTION BORDERLINE ST ELEVATION, ANTEROLATERAL LEADS : Confirmed by: Cassie Solis MD 27-Apr-2018 19:09:21
--- NOTE | 2018-04-27 19:21 | XCELERA REPORT ---
[address] [address] Transthoracic Echocardiogram Report Name: ZAHEER CANTOR SR Age: 43 yrs Gender: Male : 1975 Patient Status: Inpatient Patient Location: [address] [place], [place] [address] Study Date: 04/27/2018 01:04 PM Height: 70 in Weight: 159 lb BSA: 1.9 m2 Procedure: A limited two-dimensional transthoracic echocardiogram was performed (2D). Study Quality: Fair. Reason For Study: FO:LL:OW UP OF PERICARDIAL EFFUSION History: FO:LL:OW UP OF PERICARDIAL EFFUSION. Ordering Physician: CASSIE SOLIS Interpretation Summary There is a slight increase in the pericardial effusion , which is now moderate.No echo evidence of tamponade. MMode/2D Measurements & Calculations RVDd: 2.7 cm LVIDd: 4.7 cm FS: 32.3 % Ao root diam: 2.6 cm IVSd: 1.1 cm LVIDs: 3.2 cm EDV(Teich): 102.6 ml LVPWd: 0.97 cm ESV(Teich): 40.4 ml Ao root area: 5.3 cm2 EF(Teich): 60.6 % LA dimension: 3.3 cm Effusions There is a slight increase in the pericardial effusion , which is now moderate.No echo evidence of tamponade. : CASSIE SOLIS > Cassie Solis
[2018-04-28 04:47] LABS: HEMATOCRIT 37.9 % (37.9-51.0); HEMOGLOBIN 13.5 g/dL (13.5-17.0); MEAN CORPUSCULAR HGB CONC 35.7 g/dL (32.0-36.0); MEAN CORPUSCULAR VOLUME 84 fl (80-97); PLATELET COUNT 215 10^3/uL (150-450); RED CELL DISTRIBUTION WIDTH 12.9 % (11.5-14.0); WHITE BLOOD COUNT 7.8 10^3/uL (4.0-10.5)
[2018-04-28] MEDS: IBUPROFEN 800 MG TABLET PO SCH ×2 (06:05→13:11)
[2018-04-28] MEDS: LANSOPRAZOLE 30 MG TAB.RAP.DR PO SCH (06:05)
[2018-04-28] MEDS: COLCHICINE 0.6 MG TABLET PO SCH (09:59)
[2018-04-28 15:58] VITALS: BP 108/68
--- NOTE | 2018-04-28 16:55 | PROGRESS NOTE E ---
Progress Note NAME: ZAHEER CANTOR : 1975 AGE: 43Y DATE: 04/28/2018 ROOM: 302 SUBJECTIVE: The patient states that he still has some chest pain. It is minimal. It is much better when he sits up and slightly increases when he lies down. It is still pleuritic in nature but much more bearable. There is no shortness of breath. There is no hemoptysis. There is no cough or sputum production. There is no arrhythmia seen on the monitor. The patient denies any dizziness, near syncope, or syncope. OBJECTIVE: GENERAL: On examination the patient is well-built and well-nourished, in no acute distress. VITAL SIGNS: He is afebrile with a temperature of 98.6 degrees Fahrenheit orally. Pulse is 82 beats per minute, regular rhythm. Blood pressure is 103/64 with a mean of 77, there is no pulsus paradoxus. His respirations are 16 per minute. O2 saturations are 99% on room air. HEENT: Head is atraumatic, normocephalic. Eyes: Pupils are equal, round and regular, reactive to light and accommodation. Extraocular movements are normal. There is no conjunctival pallor. There is no scleral icterus. ENT is negative. NECK: Supple. There is no JVD. There is no lymphadenopathy. There is no goiter. Carotids are equal. There is no bruit. Trachea is central. LUNGS: Clear to auscultation and percussion. There is no chest wall tenderness. HEART: S1, S2 is heard. There is no S3 gallop. There is no S4 gallop. There is a systolic murmur in the left sternal border and the apex. There is no rub. There is no pulsus paradoxus. ABDOMEN: Soft, nontender. There is no hepatosplenomegaly. Bowel sounds are well heard. There are no tender areas or masses. EXTREMITIES: Femorals are well felt. There are no femoral bruits. Leg pulses are well felt. There is no pedal edema. There is no DVT or cellulitis. There is no calf tenderness. CENTRAL NERVOUS SYSTEM: The patient is conscious, awake, alert and oriented x3 with no focal deficits. PSYCHIATRIC: The patient's judgment and insight are intact. His affect is normal. DIAGNOSTICS: The patient's white count is 7800, hemoglobin is 13.5, hematocrit is 37.9, platelet count is 215,000. The patient's compliment is greater than 60. His c-reactive protein has come down to 46.1. IMPRESSION: 1. Pericarditis. 2. Pericardial effusion, moderate. No evidence of tamponade. RECOMMENDATIONS: 1. Would continue the patient on colchicine. The patient relatively is stable. 2. The patient can be discharged and I will follow him up in 10 days in the office. My cell phone number given to the patient. 3. The patient instructed not to engage in any physical exertion or physical activity except for activities of daily living. Discussed with the hospitalist. Discussed with the patient. Note medical decision making is of moderate complexity. We will repeat the patient's echo in about 10 days or so to make sure that the pericardial effusion is clearing. Also I explained to the patient that if he has any dizziness, shortness of breath, or leg edema or near syncope or syncope to contact me immediately. TIME SPENT: Forty minutes spent on this patient with more than 50% of the time spent on direct patient care. His medications have been reviewed. DICTATING PHYSICIAN: NAHOMI VINSON M.D. [id number] ALINA#: [id number] ID: [id number] JOB#: [id number] ACCT: [id number] cc: >
--- NOTE | 2018-04-29 12:34 | PDOC DISCHARGE SUMMARY ---
General - Admit/Disc Date/PCP Admission Date/Primary Care Provider: 04/24/18 15:25 Discharge Date: 04/28/18 - Discharge Diagnosis (1) Pericarditis Is this a current diagnosis for this admission?: Yes - Additional Information Resuscitation Status: Full Code Discharge Diet: As Tolerated Discharge Activity: Activity As Tolerated Prescriptions: Colchicine 0.6 mg PO Q12H #60 capsule Home Medications: Famotidine [Pepcid 20 mg Tablet] 20 mg PO BID 04/24/18 Omeprazole 20 mg PO DAILY 04/24/18 Colchicine 0.6 mg PO Q12H #60 capsule 04/28/18 History of Present Illness History of Present Illness: ZAHEER CANTOR SR is a 43 year old male who presented to the ED with midsternal chest pain. The patient states he has been experiencing sharp midsternal chest pain radiating to the right anterior chest wall for 2-3 weeks. Of note, the patient was seen in the [facility] ED 04/14/2018 for chest pain and his workup was completely normal, he was discharged home. The patient states that his chest pain is intermittent in nature, exacerbated only with deep inhalation , cough, and movement. When he experiences the sharp pain, it will radiate up to his neck. The patient states he took Pepcid for his symptoms, but it offered no relief. He states that his symptoms are so severe that they keep him up at night. The patient also endorses a subjective fever over the course of the last week, stating there were multiple nights that he 'soaked through' this sheets with sweat. 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 Denies past medical history. No smoking, ETOH, or illicit drug use. Upon arrival to the emergency department, the patient's vital signs were T 98.1 BP 112/73 HR 94 RR 18 SPO2 99% on RA. EKG demonstrates diffuse ST elevation and PA depression, no T-wave inversion. CXR benign. CTA chest demonstrate moderate to large pericardial effusion. STAT echocardiogram demonstrates small to moderate pericardial effusion. Troponin <0.012. Pro-BNP 59. All other lab work completely benign. Received aspirin 600 mg p.o. in emergency department. Upon assessment, the patient is resting comfortably in bed on room air. He denies chest pain while at rest. Lung sounds are clear to auscultation. Very mild systolic murmur heard over Pulmonic area (2nd L intercostal space, L sternal border). No rubs or gallops. +2 palpable pulses in all extremities. No JVD. Patient denies pain is reproducible with palpation. Admit to hospitalist service for acute pericarditis. Cardiology has been consulted. Hospital Course Hospital Course: The patient was admitted to [facility] for pericarditis, likely secondary viral infection or possibly an autoimmune disease. The patient endorsed recent ill contacts at work. EKG from admission shows diffuse ST elevation, PA depression, no T-wave inversion. CTA chest demonstrates moderate to large pericardial effusion. Echocardiogram demonstrates small to moderate pericardial effusion. Aspirin 600 mg p.o. x 1 administered in emergency department. Initiated Colchicine 0.6 mg p.o. every 12 hours and Ibuprofen 800mg PO every 8 hours. PPI given twice daily for GI protection given NSAID therapy. Daily trending of CRP to monitor inflammation. Lab work completed to test for various autoimmune diseases: RH Factor, PAULETTE, double-stranded DNA to rule out autoimmune disease - all negative. HIV negative. Viral cultures completed but will take 14 days to obtain results. Repeat ECHOcardiogram completed 04/27 showed a small increase in the size of the pericardial effusion, but there was no evidence of cardiac tamponade. The patient's CRP improved from 81 -> 46. Patient endorses a significant decrease in chest pain. Consulted with cardiology, and the decision was made to discharge the patient home with close outpatient follow up. Recommended treatment for pericarditis is NSAIDs for 1-2 weeks and colchicine for 3 months. The patient was sent home with a prescription for cholchicine and instructed to purchase OTC motrin. The patient was previously taking omeprazole , which he was instructed to continue for GI protection while he was on high dose NSAID therapy. Additionally, he was instructed to stay home from work for at least 2 weeks. 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 The patient stated understanding for his discharge instructions. Physical Exam Vital Signs: Temp Pulse Resp BP Pulse Ox 98.9 F 96 16 108/68 93 04/28/18 16:00 04/28/18 16:00 04/28/18 16:00 04/28/18 16:00 04/28/18 16:00 Intake & Output 07/0204/29/18 04/30/18 06:59 06:59 06:59 Intake Total 1285 574 Output Total 435 400 Balance 850 174 Weight 72.5 kg Results Laboratory Results: 04/28/18 04:19 04/25/18 06:57 04/25/18 06:57 NT-Pro-B Natriuret Pep 51 Impressions: Chest X-Ray 04/24/18 09:54 IMPRESSION: NO ACUTE RADIOGRAPHIC FINDING IN THE CHEST. Chest/Abdomen CTA 04/24/18 10:02 IMPRESSION: No evidence for pulmonary embolic disease. No acute consolidations or pleural effusions. A large pericardial effusion is identified. Other findings as noted above Status: Imported from PACS Qualifiers - * PATIENT BEING DISCHARGED WITH ANY OF THE FOLLOWING DIAGNOSIS: No Plan Time Spent: Greater than 30 Minutes
== END 2018-04-28 16:42 | disposition home or self-care (01) | DRG 316 ==
LOC: ER 08:52 → EH 15:25 → 3N 17:54
PROVIDERS: ADMIT Internal Medicine; ATTEND Internal Medicine
DX: I30.0 Acute nonspecific idiopathic pericarditis (principal)
CPT/HCPCS: 36415; 71045; 71275; 80053; 83735; 83880; 84484; 85025; 85027; 85652; 86038; 86140; 86162; 86225; 86235; 86430; 86480; 86701; 87252; 93005; 93010; 93306; 93321; 99285; J2270; J2920; S0119

== ENCOUNTER 2018-05-02 15:06 | Emergency (ER) | payer SELFPAY ==
[2018-05-02] MEDS ORDERED: ONDANSETRON 4 MG TAB.RAPDIS PO ONE (15:34)
[2018-05-02] MEDS ORDERED: OXYCODONE HCL IR 5 MG TABLET PO ONE (15:34)
--- NOTE | 2018-05-02 15:35 | ER Document Report ---
ED Medical Screen (RME) - General Chief Complaint: Upper Abdominal Pain Stated Complaint: RIGHT ABDOMINAL PAIN Time Seen by Provider: 05/02/18 15:29 Notes: RAPID MEDICAL EVALUATION DISCLOSURE I have seen this patient as part of a Rapid Medical Evaluation and, if applicable, placed any initially appropriate orders. The patient will be seen and fully evaluated, including a full history and physical exam, by a provider ( in Main ED or Fast Track) when a room becomes available. 43-year-old male here with complaints of upper and right-sided abdominal pain ongoing for the past day or 2. He has had some nausea but no vomiting or diarrhea. He has had some fevers described as 99.2F. He was recently admitted for pericarditis and states that he still has fluid in his heart and he is supposed to have a needle placed into his chest to have the fluid removed but they have been unable to contact Dr. Batres, the pathology laboratory aide. Exam CTAB RRR Mild epigastric TTP TRAVEL OUTSIDE OF THE [place] IN LAST 30 DAYS: No - Related Data Allergies/Adverse Reactions: No Known Allergies Allergy (Verified 05/02/18 15:07) Past Medical History - Social History Chew tobacco use (# tins/day): No Frequency of alcohol use: Occasional Drug Abuse: None Renal/ Medical History: Denies: Hx Peritoneal Dialysis Past Surgical History: Reports: Hx Herniorrhaphy - Immunizations Hx Diphtheria, Pertussis, Tetanus Vaccination: Yes Physical Exam - Vital signs Vitals: Temp Pulse Resp BP Pulse Ox 97.8 F 103 H 16 121/73 98 05/02/18 15:16 05/02/18 15:16 05/02/18 15:16 05/02/18 15:16 05/02/18 15:16 Course - Vital Signs Vital signs: Temp Pulse Resp BP Pulse Ox 97.8 F 103 H 16 121/73 98 05/02/18 15:16 05/02/18 15:16 05/02/18 15:16 05/02/18 15:16 05/02/18 15:16
[2018-05-02 16:22] LABS: ABSOLUTE EOSINOPHILS # (AUTO) 0.1 10^3/uL (0.0-0.6); ABSOLUTE LYMPHOCYTES (AUTO) 1.4 10^3/uL (0.5-4.7); ABSOLUTE MONOCYTES (AUTO) 0.7 10^3/uL (0.1-1.4); BASOPHILS % (AUTO) 0.4 % (0-2); EOSINOPHILS % (AUTO) 1.6 % (0-6); HEMATOCRIT 36.1 % (37.9-51.0); HEMOGLOBIN 12.7 g/dL (13.5-17.0); LYMPHOCYTES % (AUTO) 16.9 % (13-45); MEAN CORPUSCULAR HEMOGLOBIN 29.8 pg (27.0-33.4); MEAN CORPUSCULAR HGB CONC 35.1 g/dL (32.0-36.0); MEAN CORPUSCULAR VOLUME 85 fl (80-97); MONOCYTES % (AUTO) 8.8 % (3-13); PLATELET COUNT 299 10^3/uL (150-450); RED BLOOD COUNT 4.25 10^6/uL (4.35-5.55); RED CELL DISTRIBUTION WIDTH 12.4 % (11.5-14.0); SEGMENTED NEUTROPHILS % (AUTO) 72.3 % (42-78); TOTAL CELLS COUNTED % (AUTO) 100 %; WHITE BLOOD COUNT 8.4 10^3/uL (4.0-10.5)
[2018-05-02 16:26] LABS: APPEARANCE,URINE SLIGHTLY-CLOUDY; BILIRUBIN,URINE NEGATIVE (NEGATIVE); COLOR,URINE YELLOW; GLUCOSE, URINE NEGATIVE (NEGATIVE); KETONES,URINE NEGATIVE (NEGATIVE); LEUKOCYTE ESTERASE,URINE NEGATIVE (NEGATIVE); NITRITE,URINE NEGATIVE (NEGATIVE); PROTEIN,URINE NEGATIVE (NEGATIVE); UROBILINOGEN,URINE NEGATIVE mg/dL (<2.0)
[2018-05-02 16:40] LABS: ALANINE AMINOTRANSFERASE 236 U/L (21-72); ALBUMIN 3.7 g/dL (3.5-5.0); ALKALINE PHOSPHATASE 100 U/L (38-126); ANION GAP 12 (5-19); ASPARTATE AMINO TRANSFERASE 81 U/L (17-59); BILIRUBIN,DIRECT 0.4 mg/dL (0.0-0.4); BILIRUBIN,TOTAL 0.7 mg/dL (0.2-1.3); BLOOD UREA NITROGEN 22 mg/dL (7-20); CALCIUM 8.9 mg/dL (8.4-10.2); CARBON DIOXIDE 29 mmol/L (22-30); CHLORIDE 102 mmol/L (98-107); GLUCOSE 107 mg/dL (75-110); LIPASE 63.4 U/L (23-300); SODIUM 142.7 mmol/L (137-145); TOTAL PROTEIN 6.9 g/dL (6.3-8.2)
[2018-05-02] MEDS ORDERED: MAG HYDROX/AL HYDROX/SIMETH SUSP 30 ML UDCUP PO ONE (16:40)
[2018-05-02] MEDS ORDERED: LIDOCAINE 2% VISCOUS SOLN 20 ML UDCUP PO ONE (16:40)
[2018-05-02] MEDS ORDERED: METOCLOPRAMIDE HCL ORAL SOLN 10 MG/10 ML UDCUP PO ONE (16:40)
--- NOTE | 2018-05-02 16:43 | ER Document Report ---
ED General - General Chief Complaint: Upper Abdominal Pain Stated Complaint: RIGHT ABDOMINAL PAIN Time Seen by Provider: 05/02/18 15:29 Mode of Arrival: Ambulatory Information source: Patient, [facility] Records Notes: 43-year-old male who was diagnosed with pericarditis last week started on colchicine by cryptographic machine operator presents with complaints of epigastric abdominal pain. Patient notes it hurts upon palpation. Patient denies any fevers or chills notes chest pain has since resolved TRAVEL OUTSIDE OF THE [place] IN LAST 30 DAYS: No - HPI Onset: Other - 2-3 days Onset/Duration: Persistent Quality of pain: Sharp Severity: Mild Pain Level: 1 Associated symptoms: Other Exacerbated by: Other - motrin and colchicine Relieved by: Denies Similar symptoms previously: Yes Recently seen / treated by doctor: Yes - Related Data Allergies/Adverse Reactions: No Known Allergies Allergy (Verified 05/02/18 15:07) Past Medical History - Social History Smoking Status: Never Smoker Cigarette use (# per day): No Chew tobacco use (# tins/day): No Smoking Education Provided: No Frequency of alcohol use: Occasional Drug Abuse: None Family History: DM Patient has suicidal ideation: No Patient has homicidal ideation: No Renal/ Medical History: Denies: Hx Peritoneal Dialysis Past Surgical History: Reports: Hx Herniorrhaphy - Immunizations Hx Diphtheria, Pertussis, Tetanus Vaccination: Yes Review of Systems - Review of Systems Notes: REVIEW OF SYSTEMS: CONSTITUTIONAL : Denies fever, chills, or sweats. Denies recent illness. EENT: Denies eye, ear, throat, or mouth pain or symptoms. Denies nasal or sinus congestion or discharge. Denies throat, tongue, or mouth swelling or difficulty swallowing. CARDIOVASCULAR: Denies chest pain. Denies palpitations or racing or irregular heart beat. Denies ankle edema. RESPIRATORY: Denies cough, cold, or chest congestion. Denies shortness of breath, difficulty breathing, or wheezing. GASTROINTESTINAL: admits to epigastric pain GENITOURINARY: Denies difficulty urinating, painful urination, burning, frequency, blood in urine, or discharge. MUSCULOSKELETAL: Denies back or neck pain or stiffness. Denies joint pain or swelling. SKIN: Denies rash, lesions or sores. HEMATOLOGIC : Denies easy bruising or bleeding. LYMPHATIC: Denies swollen, enlarged glands. NEUROLOGICAL: Denies confusion or altered mental status. Denies passing out or loss of consciousness. Denies dizziness or lightheadedness. Denies headache. Denies weakness or paralysis or loss of use of either side. Denies problems with gait or speech. Denies sensory loss, numbness, or tingling. Denies seizures. PSYCHIATRIC: Denies anxiety or stress. Denies depression, suicidal ideation, or homicidal ideation. ALL OTHER SYSTEMS REVIEWED AND NEGATIVE. Dictation was performed using [employer] voice recognition software PHYSICAL EXAMINATION: GENERAL: Well-appearing, well-nourished and in no acute distress. HEAD: Atraumatic, normocephalic. EYES: Pupils equal round and reactive to light, extraocular movements intact, sclera anicteric, conjunctiva are normal. ENT: Nares patent, oropharynx clear without exudates. Moist mucous membranes. NECK: Normal range of motion, supple without lymphadenopathy LUNGS: Breath sounds clear to auscultation bilaterally and equal. No wheezes rales or rhonchi. HEART: Regular rate and rhythm without murmurs ABDOMEN: Soft, tender i nthe epigastric region . Musculoskeletal: Normal range of motion, no pitting or edema. No cyanosis. NEUROLOGICAL: Cranial nerves grossly intact. Normal speech, normal gait. Normal sensory, motor exams PSYCH: Normal mood, normal affect. SKIN: Warm, Dry, normal turgor, no rashes or lesions noted. Physical Exam - Vital signs Vitals: Temp Pulse Resp BP Pulse Ox 97.8 F 103 H 16 121/73 98 05/02/18 15:16 05/02/18 15:16 05/02/18 15:16 05/02/18 15:16 05/02/18 15:16 Course - Re-evaluation Re-evalutation: 05/02/18 16:42 Patient's presentation is most consistent with GERD caused by the colchicine 05/02/18 17:[address] Vinson explained to him the elevated liver enzymes, I will be stopping the colchicine and the Motrin, we will start the patient on prednisone 05/02/18 18:22 After performing a Medical Screening Examination, I estimate there is LOW risk for RUPTURED ESOPHAGUS, PNEUMOTHORAX, PULMONARY EMBOLISM, ACUTE CORONARY SYNDROME, OR THORACIC AORTIC DISSECTION, thus I consider the discharge disposition reasonable. I have reevaluated this patient multiple times and no significant life threatening changes are noted. The patient and I have discussed the diagnosis and risks, and we agree with discharging home with close follow-up. We also discussed returning to the Emergency Department immediately if new or worsening symptoms occur. We have discussed the symptoms which are most concerning (e.g., bloody sputum, worsening pain or shortness of breath) that necessitate immediate return. - Vital Signs Vital signs: Temp Pulse Resp BP Pulse Ox 97.8 F 103 H 16 121/73 98 05/02/18 15:16 05/02/18 15:16 05/02/18 15:16 05/02/18 15:16 05/02/18 15:16 - Laboratory Result Diagrams: 05/02/18 16:00 05/02/18 16:00 Laboratory results interpreted by me: 05/02/18 05/02/18 05/02/18 16:00 16:00 16:00 RBC 4.25 L Hgb 12.7 L Hct 36.1 L BUN 22 H AST 81 H ALT 236 H Urine Blood SMALL H Discharge - Discharge Clinical Impression: Elevated liver enzymes Condition: Stable Disposition: HOME, SELF-CARE Instructions: Liver Function Abnormality ([facility]) Prescriptions: Prednisone [Deltasone 20 mg Tablet] 3 tab PO DAILY 5 Days tablet Referrals: NAHOMI VINSON MD [ACTIVE STAFF] - Follow up in 3-5 days
[2018-05-02 18:45] VITALS: BP 122/77
== END 2018-05-02 18:50 | disposition home or self-care (01) ==
LOC: ER 15:06
DX: R74.8 Abnormal levels of other serum enzymes (principal); R10.13 Epigastric pain; I31.9 Disease of pericardium, unspecified
CPT/HCPCS: 99284; 36415; 83690; 85025; 80053; 81001; S0119; J3490

== ENCOUNTER → 2018-05-07 | Outpatient (CLI) | payer SELFPAY ==
[2018-05-07 16:55] LABS: ALANINE AMINOTRANSFERASE 105 U/L (21-72); ALBUMIN 4.3 g/dL (3.5-5.0); ALKALINE PHOSPHATASE 93 U/L (38-126); ASPARTATE AMINO TRANSFERASE 23 U/L (17-59); BILIRUBIN,DIRECT 0.4 mg/dL (0.0-0.4); BILIRUBIN,TOTAL 0.9 mg/dL (0.2-1.3); TOTAL PROTEIN 7.6 g/dL (6.3-8.2)
== END ==
LOC: OD 15:39
PROVIDERS: ATTEND Specialist
DX: I30.9 Acute pericarditis, unspecified (principal); I31.3 Pericardial effusion (noninflammatory); R94.5 Abnormal results of liver function studies; E78.5 Hyperlipidemia, unspecified; Z79.899 Other long term (current) drug therapy
CPT/HCPCS: 36415; 80076; 85652